=== PATIENT | male | born 1995 | race Caucasian/White ===

== ENCOUNTER 2020-01-30 02:30 | Emergency (ER) | payer OTHER, SELFPAY ==
[2020-01-30 02:42] VITALS: BP 111/83; PULSE 83; RESP 16; TEMP 36.4; O2SAT 97; BMI 32.2
--- NOTE | 2020-01-30 03:03 | ED.ALCOHOL ---
HPI - Alcohol General Chief Complaint: ETOH/Substance Use <Narciso Mooyd MD - Last Filed: 01/30/20 06:05> Stated Complaint: etoh <Narciso Moody MD - Last Filed: 01/30/20 06:05> Time Seen by Provider: 01/30/20 03:00 <Narciso Moody MD - Last Filed: 01/30/20 06:05> Source: patient and EMS <Narciso Moody MD - Last Filed: 01/30/20 06:05> Mode of arrival: EMS <Narciso Moody MD - Last Filed: 01/30/20 06:05> Limitations: other (Intoxicated) <Narciso Moody MD - Last Filed: 01/30/20 06:05> History of Present Illness HPI narrative: Patient came after drinking lots of Sambuca today and been vomiting a lot all day no significant abdominal pain no fever no diarrhea <Narciso Moody MD - Last Filed: 01/30/20 06:05> MD complaint: alcohol intoxication <Narciso Moody MD - Last Filed: 01/30/20 06:05> Related Data Allergies/Adverse Reactions: Allergies Allergy/AdvReac Type Severity Reaction Status Date / Time No Known Allergies Allergy Unverified 10/28/19 16:43 <Narciso Moody MD - Last Filed: 01/30/20 06:05> Review of Systems Review of Systems: Yes Unobtainable due to mental status (Intoxicated) <Narciso Moody MD - Last Filed: 01/30/20 06:05> [facility] Social History Social History: Social History Advance Directives: No Advance Directives Information Provided: No <Narciso Moody MD - Last Filed: 01/30/20 06:05> Physical Exam Vital Signs: Vital Signs: Last Vital Signs Temp 97.6 F 01/30/20 02:42 Pulse 79 01/30/20 05:58 Resp 16 01/30/20 05:58 BP 105/63 01/30/20 05:58 Pulse Ox 97 01/30/20 02:42 Body Mass Index 32.2 <Narciso Moody MD - Last Filed: 01/30/20 06:05> Vital Signs: Last Vital Signs Temp 97.6 F 01/30/20 02:42 Pulse 79 01/30/20 05:58 Resp 16 01/30/20 05:58 BP 105/63 01/30/20 05:58 Pulse Ox 97 01/30/20 02:42 Body Mass Index 32.2 <Nicole Sandra DO - Last Filed: 01/30/20 07:01> Appearance: Intoxicated, etoh ++ No acute distress. Eyes: Pupils equal, round and reactive to light. ENT: Pharynx normal. Neck: Normal inspection. Neck supple. CVS: Normal heart rate and rhythm. Pulses normal. Respiratory: No respiratory distress. Breath sounds normal. Abdomen: Soft and mild epigastric tenderness Bowel sounds are present, no mass palpable, no CVA tenderness Skin: Skin warm and dry. Normal skin color. Normal skin turgor. Extremities: No lower extremity edema. Neuro: Intoxicated No motor deficit. No sensory deficit. <Narciso Moody MD - Last Filed: 01/30/20 06:05> Course Course Course Narrative: I DID NOT SEE THIS PATIENT INITIALLY RECEIVED SIGN OUT AT 7AM - PENDING CLINICAL SOBRIETY THE PATIENT WILL BE OBSERVED, VS STABLE NOT TOXIC <Nicole Sandra DO - Last Filed: 01/30/20 07:01> MDM - Alcohol MDM Narrative Medical decision making narrative: Patient intoxicated with stable vital will watch him some more time till sober ETOH level was 251 at 03:00 <Narciso Moody MD - Last Filed: 01/30/20 06:05> Lab Data Result diagrams: : 01/30/20 03:09 01/30/20 03:09 <Narciso Moody MD - Last Filed: 01/30/20 06:05> Labs: Lab Results 01/30/20 01/30/20 01/30/20 Range/Units 03:09 03:09 03:09 WBC 6.2 (4.8-10.8) X10*3/uL RBC 4.91 (4.60-5.80) X10*6/uL Hgb 13.4 L (14.0-18.0) g/dl Hct 42.2 (42-52) % MCV 85.9 (80-98) fL MCH 27.3 (27.0-33.0) pg MCHC 31.8 (31.0-36.0) g/dl RDW 13.4 (11.0-16.0) % Plt Count 228 (160-400) X10*3/uL MPV 9.7 (9.4-12.4) fL Immature Gran % (Auto) 0.2 (0.0-0.4) % Neut % (Auto) 49.6 (45-73) % Lymph % (Auto) 32.8 (20-40) % Mcdonough % (Auto) 15.1 H (2-11) % Eos % (Auto) 1.8 (0-4) % Baso % (Auto) 0.5 (0-2) % Lymph # (Auto) 2.0 (1.2-4.9) X10*3/uL Mcdonough # (Auto) 0.9 (0.1-1.2) X10*3/uL Eos # (Auto) 0.1 (0.0-0.4) X10*3/uL Baso # (Auto) 0.0 (0.0-0.2) X10*3/uL Abs Immat Gran (auto) 0.01 (0.00-0.03) X10*3/uL Absolute Neuts (auto) 3.1 (2.0-8.3) X10*3/uL Absolute Nucleated RBC 0.000 (0.0-0.012) X10*3/uL Nucleated RBC % (auto) 0.0 (0.0-0.2) /100WBC Sodium 141 (135-145) mmol/L Potassium 3.7 (3.3-5.1) mmol/l Chloride 106 (96-108) mmol/L Carbon Dioxide 25 (22-29) mmol/L Anion Gap 14 (12-20) BUN 12 (9-16) mg/dL Creatinine 0.88 (0.5-1.4) mg/dL Estim Creat Clear Calc 160.8 Estimated GFR > 60 Random Glucose 100 (60-115) mg/dL Calcium 8.1 L (8.4-10.2) mg/dL Magnesium 2.5 (1.6-2.6) mg/dL Total Bilirubin 0.3 Cancelled (0.0-1.0) mg/dL Direct Bilirubin 0.2 Cancelled (0.0-0.5) mg/dL AST 16 Cancelled (5-37) U/L ALT 13 Cancelled (0-40) U/L Alkaline Phosphatase 83 Cancelled (39-117) U/L Total Protein 6.9 Cancelled (6.5-8.0) g/dL Albumin 4.1 Cancelled (3.5-5.0) g/dL Lipase 45 Cancelled (8-78) U/L Ethyl Alcohol mg/dL 01/30/20 Range/Units 03:09 WBC (4.8-10.8) X10*3/uL RBC (4.60-5.80) X10*6/uL Hgb (14.0-18.0) g/dl Hct (42-52) % MCV (80-98) fL MCH (27.0-33.0) pg MCHC (31.0-36.0) g/dl RDW (11.0-16.0) % Plt Count (160-400) X10*3/uL MPV (9.4-12.4) fL Immature Gran % (Auto) (0.0-0.4) % Neut % (Auto) (45-73) % Lymph % (Auto) (20-40) % Mcdonough % (Auto) (2-11) % Eos % (Auto) (0-4) % Baso % (Auto) (0-2) % Lymph # (Auto) (1.2-4.9) X10*3/uL Mcdonough # (Auto) (0.1-1.2) X10*3/uL Eos # (Auto) (0.0-0.4) X10*3/uL Baso # (Auto) (0.0-0.2) X10*3/uL Abs Immat Gran (auto) (0.00-0.03) X10*3/uL Absolute Neuts (auto) (2.0-8.3) X10*3/uL Absolute Nucleated RBC (0.0-0.012) X10*3/uL Nucleated RBC % (auto) (0.0-0.2) /100WBC Sodium (135-145) mmol/L Potassium (3.3-5.1) mmol/l Chloride (96-108) mmol/L Carbon Dioxide (22-29) mmol/L Anion Gap (12-20) BUN (9-16) mg/dL Creatinine (0.5-1.4) mg/dL Estim Creat Clear Calc Estimated GFR Random Glucose (60-115) mg/dL Calcium (8.4-10.2) mg/dL Magnesium (1.6-2.6) mg/dL Total Bilirubin (0.0-1.0) mg/dL Direct Bilirubin (0.0-0.5) mg/dL AST (5-37) U/L ALT (0-40) U/L Alkaline Phosphatase (39-117) U/L Total Protein (6.5-8.0) g/dL Albumin (3.5-5.0) g/dL Lipase (8-78) U/L Ethyl Alcohol 251 mg/dL <Narciso Moody MD - Last Filed: 01/30/20 06:05> Lab Results 01/30/20 01/30/20 01/30/20 Range/Units 03:09 03:09 03:09 WBC 6.2 (4.8-10.8) X10*3/uL RBC 4.91 (4.60-5.80) X10*6/uL Hgb 13.4 L (14.0-18.0) g/dl Hct 42.2 (42-52) % MCV 85.9 (80-98) fL MCH 27.3 (27.0-33.0) pg MCHC 31.8 (31.0-36.0) g/dl RDW 13.4 (11.0-16.0) % Plt Count 228 (160-400) X10*3/uL MPV 9.7 (9.4-12.4) fL Immature Gran % (Auto) 0.2 (0.0-0.4) % Neut % (Auto) 49.6 (45-73) % Lymph % (Auto) 32.8 (20-40) % Mcdonough % (Auto) 15.1 H (2-11) % Eos % (Auto) 1.8 (0-4) % Baso % (Auto) 0.5 (0-2) % Lymph # (Auto) 2.0 (1.2-4.9) X10*3/uL Mcdonough # (Auto) 0.9 (0.1-1.2) X10*3/uL Eos # (Auto) 0.1 (0.0-0.4) X10*3/uL Baso # (Auto) 0.0 (0.0-0.2) X10*3/uL Abs Immat Gran (auto) 0.01 (0.00-0.03) X10*3/uL Absolute Neuts (auto) 3.1 (2.0-8.3) X10*3/uL Absolute Nucleated RBC 0.000 (0.0-0.012) X10*3/uL Nucleated RBC % (auto) 0.0 (0.0-0.2) /100WBC Sodium 141 (135-145) mmol/L Potassium 3.7 (3.3-5.1) mmol/l Chloride 106 (96-108) mmol/L Carbon Dioxide 25 (22-29) mmol/L Anion Gap 14 (12-20) BUN 12 (9-16) mg/dL Creatinine 0.88 (0.5-1.4) mg/dL Estim Creat Clear Calc 160.8 Estimated GFR > 60 Random Glucose 100 (60-115) mg/dL Calcium 8.1 L (8.4-10.2) mg/dL Magnesium 2.5 (1.6-2.6) mg/dL Total Bilirubin 0.3 Cancelled (0.0-1.0) mg/dL Direct Bilirubin 0.2 Cancelled (0.0-0.5) mg/dL AST 16 Cancelled (5-37) U/L ALT 13 Cancelled (0-40) U/L Alkaline Phosphatase 83 Cancelled (39-117) U/L Total Protein 6.9 Cancelled (6.5-8.0) g/dL Albumin 4.1 Cancelled (3.5-5.0) g/dL Lipase 45 Cancelled (8-78) U/L Ethyl Alcohol mg/dL 01/30/20 Range/Units 03:09 WBC (4.8-10.8) X10*3/uL RBC (4.60-5.80) X10*6/uL Hgb (14.0-18.0) g/dl Hct (42-52) % MCV (80-98) fL MCH (27.0-33.0) pg MCHC (31.0-36.0) g/dl RDW (11.0-16.0) % Plt Count (160-400) X10*3/uL MPV (9.4-12.4) fL Immature Gran % (Auto) (0.0-0.4) % Neut % (Auto) (45-73) % Lymph % (Auto) (20-40) % Mcdonough % (Auto) (2-11) % Eos % (Auto) (0-4) % Baso % (Auto) (0-2) % Lymph # (Auto) (1.2-4.9) X10*3/uL Mcdonough # (Auto) (0.1-1.2) X10*3/uL Eos # (Auto) (0.0-0.4) X10*3/uL Baso # (Auto) (0.0-0.2) X10*3/uL Abs Immat Gran (auto) (0.00-0.03) X10*3/uL Absolute Neuts (auto) (2.0-8.3) X10*3/uL Absolute Nucleated RBC (0.0-0.012) X10*3/uL Nucleated RBC % (auto) (0.0-0.2) /100WBC Sodium (135-145) mmol/L Potassium (3.3-5.1) mmol/l Chloride (96-108) mmol/L Carbon Dioxide (22-29) mmol/L Anion Gap (12-20) BUN (9-16) mg/dL Creatinine (0.5-1.4) mg/dL Estim Creat Clear Calc Estimated GFR Random Glucose (60-115) mg/dL Calcium (8.4-10.2) mg/dL Magnesium (1.6-2.6) mg/dL Total Bilirubin (0.0-1.0) mg/dL Direct Bilirubin (0.0-0.5) mg/dL AST (5-37) U/L ALT (0-40) U/L Alkaline Phosphatase (39-117) U/L Total Protein (6.5-8.0) g/dL Albumin (3.5-5.0) g/dL Lipase (8-78) U/L Ethyl Alcohol 251 mg/dL <Nicole Sandra DO - Last Filed: 01/30/20 07:01> Discharge Plan Discharge Clinical Impression: Alcoholic intoxication Qualifiers: Complication of substance-induced condition: uncomplicated Qualified Code(s): F10.920 - Alcohol use, unspecified with intoxication, uncomplicated <Narciso Moody MD - Last Filed: 01/30/20 06:05> Patient Disposition: Home, Self-Care <Narciso Moody MD - Last Filed: 01/30/20 06:05> Instructions: Alcohol Intoxication (ED) <Narciso Moody MD - Last Filed: 01/30/20 06:05> Additional Instructions: Stop drinking alcohol above legal limit. <Narciso Moody MD - Last Filed: 01/30/20 06:05>
--- NOTE | 2020-01-30 03:03 | PC.NURSE ---
at bedside for primary eval.
--- NOTE | 2020-01-30 03:05 | PC.NURSE ---
Pt sitting upright in hospital bed with vomit noted to face, colindres and clothes. Pt is awake, speaking full sentences but speech slurred, +ETOH halitosis. Pt self reports to drinking a lot of Sambuca. Pt nauseated, vomiting several times [employer], pt continues dry heaving while in hospital bed. IV established, labs obtained, IVF hung, pt medicated per APR. VSS. Pt snoring at this time, continue to monitor.
[2020-01-30] MEDS: Famotidine/PF 20 MG/2 ML VIAL IVPUSH (03:08)
[2020-01-30] MEDS: 0.9 % Sodium Chloride 1,000 ML 999 ML IVCONT (03:08)
[2020-01-30] MEDS: ondansetron HCL 4 MG/2 ML VIAL IVPUSH (03:08)
[2020-01-30 03:19] LABS: Basophils Percent Auto 0.5 % (0-2); Eosinophils Absolute Auto 0.1 X10*3/uL (0.0-0.4); Eosinophils Percent Auto 1.8 % (0-4); Hematocrit 42.2 % (42-52); Hemoglobin 13.4 g/dl (14.0-18.0); Imm Gran Abs Auto 0.01 X10*3/uL (0.00-0.03); Imm Gran Pct Auto 0.2 % (0.0-0.4); Lymphocytes Percent Auto 32.8 % (20-40); MANUAL DIFF FLAG NO; Mean Corpuscular HGB Conc 31.8 g/dl (31.0-36.0); Mean Corpuscular Hemoglobin 27.3 pg (27.0-33.0); Mean Corpuscular Volume 85.9 fL (80-98); Mean Platelet Volume 9.7 fL (9.4-12.4); Monocytes Absolute Auto 0.9 X10*3/uL (0.1-1.2); Monocytes Percent Auto 15.1 % (2-11); Neutrophils Absolute Auto 3.1 X10*3/uL (2.0-8.3); Neutrophils Percent Auto 49.6 % (45-73); Platelet Count 228 X10*3/uL (160-400); Red Blood Count 4.91 X10*6/uL (4.60-5.80); Red Cell Distribution Width 13.4 % (11.0-16.0); White Blood Count 6.2 X10*3/uL (4.8-10.8)
[2020-01-30 03:36] VITALS: BP 121/66; PULSE 74; RESP 20
[2020-01-30 03:58] LABS: Ethanol 251 mg/dL
[2020-01-30 04:00] LABS: Alanine Aminotransferase 13 U/L (0-40); Albumin Level 4.1 g/dL (3.5-5.0); Alkaline Phosphatase 83 U/L (39-117); Anion Gap 14 (12-20); Aspartate Amino Transferase 16 U/L (5-37); Bilirubin Direct 0.2 mg/dL (0.0-0.5); Bilirubin Total 0.3 mg/dL (0.0-1.0); Blood Urea Nitrogen 12 mg/dL (9-16); Calcium 8.1 mg/dL (8.4-10.2); Carbon Dioxide 25 mmol/L (22-29); Chloride 106 mmol/L (96-108); Creatinine Clr Calc Pharmacy 160.8; Estimated Glomerular Filt Rate > 60; Glucose Random 100 mg/dL (60-115); Lipase 45 U/L (8-78); Magnesium 2.5 mg/dL (1.6-2.6); Potassium 3.7 mmol/l (3.3-5.1); Sodium 141 mmol/L (135-145); Total Protein 6.9 g/dL (6.5-8.0)
[2020-01-30 04:45] VITALS: BP 105/69; PULSE 69; RESP 16
--- NOTE | 2020-01-30 05:28 | PC.NURSE ---
Pt remains asleep in bed at this time, visible chest rise noted. VSS. Continue to monitor.
[2020-01-30 05:58] VITALS: BP 105/63; PULSE 79; RESP 16
--- NOTE | 2020-01-30 06:10 | PC.NURSE ---
Pt remains in bed asleep at this time, wakes easily to verbal stimuli. Speech slurred and incoherent. Pt repositioned in bed, padding applied to left side rail. No episodes of vomiting noted since given Zofran. VSS. Plan to DC with sober ride when pt is CAOx4. Continue to monitor.
[2020-01-30 07:21] VITALS: BP 102/66; PULSE 54; RESP 18; O2SAT 98
[2020-01-30 09:03] VITALS: BP 100/64; PULSE 85; RESP 20; O2SAT 100
--- NOTE | 2020-01-30 11:00 | PC.NURSE ---
Pt awake, alert and oriented. He is calm and cooperative at this time. He was given extra shirt for dc as his was soiled. He is calling contacts for a ride home.
== END 2020-01-30 11:02 | disposition home or self-care (01) ==
PROVIDERS: Emergency Provider Internal Medicine
DX: F10.920 Alcohol use, unspecified with intoxication, uncomplicated (principal); Y90.8 Blood alcohol level of 240 mg/100 ml or more
CPT/HCPCS: 36415; 80048; 80076; 80320; 83690; 83735; 85025; 96361; 96374; 96375; 99284; J2405

== ENCOUNTER 2022-02-23 18:37 | Inpatient (IN) | payer OTHER, SELFPAY ==
--- NOTE | ~2022-02-23 | CT_ITS ---
EXAMINATION: CT ABDOMEN AND PELVIS WITH CONTRAST CLINICAL INFORMATION: Left upper quadrant pain COMPARISON: None TECHNIQUE: Multidetector volumetric images were obtained from the superior aspect of the liver through the pubic symphysis following administration 85 mL of Omnipaque 350 intravenous contrast. Sagittal and coronal reformatted images were obtained on the technologist's workstation. Oral contrast: No This CT examination was performed using dose optimization techniques as appropriate, variously including the following: *Automated exposure control *Adjustment of mA and/or kV according to patient size (this includes techniques or standardized protocols for targeted exams where dose is matched to indication/reason for exam; i.e. extremities or head) *Use of iterative reconstruction technique DLP: 746 mGy-cm FINDINGS: LUNG BASES: Mild basilar atelectasis LIVER, GALLBLADDER, AND BILIARY TREE: The liver is normal in size, shape, and attenuation. No focal hepatic lesion or biliary ductal dilatation is present. The gallbladder is unremarkable with no evidence of radiopaque gallstones, gallbladder wall thickening, or obvious pericholecystic inflammatory changes. PANCREAS: Pancreas is surrounded by fluid is tracking down the left paracolic gutter region. SPLEEN: Unremarkable. ADRENAL GLANDS: Unremarkable. KIDNEYS AND URETERS: The kidneys are normal in size, shape, and attenuation. No hydronephrosis, hydroureter, or calculi seen. No perinephric stranding. BLADDER: Unremarkable. GASTROINTESTINAL TRACT: Nonobstructing bowel pattern. Moderate hiatal hernia ABDOMINAL WALL: No significant hernia is appreciated. LYMPH NODES: Normal. VASCULAR: Unremarkable. PELVIC VISCERA: Unremarkable. OSSEOUS STRUCTURES: Unremarkable. CT/CT abdomen pelvis w IV con IMPRESSION: Fluid density and soft tissue stranding around the pancreas consistent with sequela of pancreatitis. Other findings are as described above
--- NOTE | ~2022-02-23 | XR_ITS ---
EXAMINATION: XR ABDOMEN KUB CLINICAL INDICATION: Constipation COMPARISON: KUB 02/23/[address] 02/23/2022 TECHNIQUE: AP view of the abdomen. FINDINGS: Compared to the study of 2 days ago, there has been no interval change. Once again seen is a normal bowel gas pattern with no evidence of ileus or obstruction. No unusual soft tissue calcifications are noted. Some air is present in the colon without significant stool burden. The bones are unremarkable. XR/XR KUB IMPRESSION: No evidence of bowel obstruction. No significant stool burden.
--- NOTE | ~2022-02-23 | XR_ITS ---
EXAMINATION: XR ABDOMEN KUB CLINICAL INDICATION: Constipation COMPARISON: None TECHNIQUE: AP view of the abdomen. FINDINGS: Nonobstructive abdominal bowel gas pattern. Minimal stool present. No abnormal abdominal calcifications. No acute osseous abnormality. XR/XR KUB IMPRESSION: Nonobstructive abdominal bowel gas pattern. Minimal stool present.
[2022-02-23 18:39] VITALS: BP 150/96; PULSE 124; RESP 18; TEMP 36.2; O2SAT 98; BMI 30.9
--- NOTE | 2022-02-23 18:39 | ECG_ITS ---
Test Reason : CP Blood Pressure : / mmHG Vent. Rate : 109 BPM Atrial Rate : 109 BPM P-R Int : 130 ms QRS Dur : 086 ms QT Int : 306 ms P-R-T Axes : 057 041 032 degrees QTc Int : 412 ms Sinus tachycardia Possible Left atrial enlargement ST & T wave abnormality, consider inferior ischemia ST & T wave abnormality, consider anterolateral ischemia Abnormal ECG No previous ECGs available Referred By: Kassy Campuzano Electronically Signed By:Haim Merrill
--- NOTE | 2022-02-23 18:40 | ED_ITS ---
HPI - Abdominal Pain General Chief Complaint: Nausea/Vomiting/Diarrhea <GIRISH Reyes Last Filed: 02/23/22 18:43> Stated Complaint: pressure in chest and stomach/vomitting <GIRISH Reyes Last Filed: 02/23/22 18:43> Time Seen by Provider: 02/23/22 19:22 <GIRISH Reyes Last Filed: 02/23/22 18:43> Source: patient <GIRISH Umanzor Last Filed: 02/23/22 21:54> Mode of arrival: ambulatory <GIRISH Umanzor Last Filed: 02/23/22 21:54> Limitations: no limitations <GIRISH Umanzor Last Filed: 02/23/22 21:54> History of Present Illness HPI narrative: This is a 26-year-old male past medical history significant for asthma presenting to the emergency department with nausea, vomiting and no bowel movements since this morning, he tells me he feels constipated also experiencing epigastric severe abdominal pain described as sharp, intermittent. Patient tells me that the abdominal pain does not radiate. Patient tells me he has not been able to keep anything down today, he tells me he feels awful. Patient reports he is a frequent drinker drinks 3-4 drinks daily what ever is available to him. No history of alcohol withdrawal. No history of pancreatitis. Denies chest pain, shortness of breath, fevers, chills, headache, vision changes, dizziness, weakness. <GIRISH Umanzor Last Filed: 02/23/22 21:54> Related Data Allergies/Adverse Reactions: Allergies Allergy/AdvReac Type Severity Reaction Status Date / Time No Known Allergies Allergy Unverified 10/28/19 16:43 <GIRISH Reyes Last Filed: 02/23/22 18:43> Review of Systems Review of Systems Constitutional : No Weight loss, No Fever, No Chills, No Fatigue, No Malaise ENT/Mouth : No sore throat, No Rhinorrhea Eyes: No Eye Pain, No Swelling, No Redness Cardiovascular : No Chest Pain, No SOB, No Dyspnea on Exertion, No Orthopnea, No Edema, No Palpitations Respiratory : No Cough, No Sputum, No Wheezing Gastrointestinal : + Nausea, + Vomiting, No Diarrhea, No Constipation, + abdominal Pain, No Hematochezia, No Melena Genitourinary : No Dysuria, No Urinary Frequency, No Hematuria, Musculoskeletal : No joint pain, No Myalgias, No Joint Swelling Skin : No Skin Lesions, No rash Neuro : No Weakness, No Numbness, No Dizziness, No Headache Psych : No Anxiety/Panic, No Depression All other systems reviewed and are negative <GIRISH Umanzor - Last Filed: 02/23/22 21:54> Yes all other systems are reviewed and are negative <GIRISH Umanzor - Last Filed: 02/23/22 21:54> PMF Past Medical History Attestation statement: The following information was validated with the patient. <GIRISH Umanzor - Last Filed: 02/23/22 21:54> Source: old records reviewed and nursing notes reviewed <GIRISH Umanzor - Last Filed: 02/23/22 21:54> Social History Social History: Social History Alcohol intake: current Alcohol intake frequency: 0-2 drinks per day Alcohol type: hard liquor Smoked in Last 30 Days: No Use of substances other than those prescribed or required for medical reasons: Yes Substance Use Type: Marijuana Substance Use Frequency: Occasionally Any prior treatment program specific to substance use: Yes Advance Directives: No Advance Directives Information Provided: No <GIRISH Reyes - Last Filed: 02/23/22 18:43> Physical Exam ED Vital Signs: Vital Signs - 24 hr 02/23/22 18:39 02/23/22 20:00 02/23/22 20:36 Temperature 97.1 F 98.1 F Pulse Rate 124 H 119 H Respiratory Rate 18 16 20 Blood Pressure 150/96 H 142/105 H Pulse Oximetry 98 98 Oxygen Delivery Method Room Air Room Air 02/23/22 21:51 Temperature 98.6 F Pulse Rate 87 Respiratory Rate 16 Blood Pressure 139/89 Pulse Oximetry 100 Oxygen Delivery Method Room Air BMI result Body Mass Index 30.9 <GIRISH Reyes - Last Filed: 02/23/22 18:43> Vital Signs - 24 hr 02/23/22 18:39 02/23/22 20:00 02/23/22 20:36 Temperature 97.1 F 98.1 F Pulse Rate 124 H 119 H Respiratory Rate 18 16 20 Blood Pressure 150/96 H 142/105 H Pulse Oximetry 98 98 Oxygen Delivery Method Room Air Room Air 02/23/22 21:51 Temperature 98.6 F Pulse Rate 87 Respiratory Rate 16 Blood Pressure 139/89 Pulse Oximetry 100 Oxygen Delivery Method Room Air BMI result Body Mass Index 30.9 Vital signs significant for tachycardia, hypertension likely secondary to pain or discomfort. <GIRISH Umanzor - Last Filed: 02/23/22 21:54> Appearance: Alert.? Oriented X3.? No acute distress.? Patient appears uncomfortable. Head: Normocephalic, atraumatic, no step-offs or deformities Eyes: Pupils equal, round and reactive to light.? ENT: Pharynx normal.? Neck: Normal inspection.? Neck supple.? CVS: Normal heart rate and rhythm.? Pulses normal.? Respiratory: No respiratory distress.? Breath sounds normal.? Abdomen: Soft and tenderness epigastric and left upper quadrant. Normoactive bowel sounds. Skin: Skin warm and dry.? Normal skin color.? Normal skin turgor.? Extremities: No lower extremity edema.? No calf ttp. 5/5 strength to bilateral upper and lower extremities Back: no CVA tenderness bilaterally Neuro: Oriented X 3.? No motor deficit.? No sensory deficit. CN 2-12 intact <GIRISH Umanzor - Last Filed: 02/23/22 21:54> Course Course Course Narrative: RME-- 26yo M w/no sig PMHx c/o nausea, vomiting, constipation, abdominal pain and chest pain since this AM. Last BM this AM. Took laxative w/o relief. Tachycardic and anxious on exam. abdomen soft with epigastric ttp EKG, labs, UA and KUB ordered <GIRISH Reyes - Last Filed: 02/23/22 18:43> Reevaluation(s) Reevaluation #1: Patient with elevated white blood cell count 12.2 likely reactive from nausea and vomiting versus inflammation. Chemistry with no acute electrolyte abnormalities requiring intervention. Troponin negative, EKG nonischemic unlikely ACS. Lipase elevated 465 consistent with acute pancreatitis, will add triglyceride level. Patient's UA without infection. Pending CT of the abdomen pelvis, patient receiving hydration, pain control plan is for hospital admission after CT results. <GIRISH Umanzor - Last Filed: 02/23/22 21:54> Time: 20:26 <GIRISH Umanzor - Last Filed: 02/23/22 21:54> Reevaluation #2: Patient's lactic acid 2.3 likely secondary to dehydration/poor p.o. intake however patient does have a leukocytosis therefore will cover with empiric antibiotics. <GIRISH Umanzor - Last Filed: 02/23/22 21:54> Time: 21:07 <GIRISH Umanzor - Last Filed: 02/23/22 21:54> Reevaluation #3: Patient will be admitted to the hospital as he is not tolerating p.o. and has new diagnosis of pancreatitis. Hospitalist accepts admission <GIRISH Umanzor - Last Filed: 02/23/22 21:54> Time: 21:54 <GIRISH Umanzor - Last Filed: 02/23/22 21:54> Medical Decision Making Medical Decision Making MDM Narrative: 2014 26-year-old male presents with epigastric/left upper quadrant pain since this morning associated with nausea, vomiting and difficulty having bowel movements. Current daily drinker. Physical exam with epigastric and left upper quadrant pain on palpation. Patient tachycardic and hypertensive likely secondary to pain and discomfort. History and physical exam concerning for possible gastritis versus pancreatitis. Unlikely acute abdomen, diverticulitis, pyelonephritis, appendicitis, cholecy stitis, kidney stones or UTI. Plan at this time labs, imaging, fluids, Zofran for nausea, morphine for pain control. <GIRISH Umanzor Last Filed: 02/23/22 21:54> Differential Diagnosis Differential Diagnoses: The differential diagnosis associated with the presentation includes <GIRISH Umanzor Last Filed: 02/23/22 21:54> History and physical exam concerning for possible gastritis versus pancreatitis. Unlikely acute abdomen, diverticulitis, pyelonephritis, appendicitis, cholecystitis, kidney stones or UTI. <GIRISH Umanzor - Last Filed: 02/23/22 21:54> Admission/Observation Consideration of admission/observation: Escalation of care including admission/observation considered <GIRISH Umanzor - Last Filed: 02/23/22 21:54> I suspect patient will be admitted to the hospital as he is unable to tolerate p.o. in likely has pancreatitis <GIRISH Umanzor - Last Filed: 02/23/22 21:54> Consult Healthcare Provider Management of the patient was discussed with: Hospitalist <GIRISH Umanzor - Last Filed: 02/23/22 21:54> Lab Data MDM Lab Attestation statement: I reviewed the patient's lab results. <GIRISH Umanzor - Last Filed: 02/23/22 21:54> Result Diagrams: 02/23/22 18:52 02/23/22 18:52 <GIRISH Reyes - Last Filed: 02/23/22 18:43> Labs: Lab Results 02/23/22 02/23/22 02/23/22 Range/Units 18:52 18:52 18:52 WBC 12.2 H (4.8-10.8) X10*3/uL RBC 5.47 (4.60-5.80) X10*6/uL Hgb 15.5 (14.0-18.0) g/dl Hct 45.8 (42.0-52.0) % MCV 83.7 (80.0-98.0) fL MCH 28.3 (27.0-33.0) pg MCHC 33.8 (31.0-36.0) g/dl RDW 13.5 (11.0-16.0) % Plt Count 238 (160-400) X10*3/uL MPV 8.3 L (9.4-12.4) fL Immature Gran % (Auto) 0.3 (0.0-0.4) % Neut % (Auto) 89.8 H (45-73) % Lymph % (Auto) 2.3 L (20-40) % Bennett % (Auto) 7.0 (2-11) % Eos % (Auto) 0.4 (0-4) % Baso % (Auto) 0.2 (0-2) % Lymph # (Auto) 0.3 L (1.2-4.9) X10*3/uL Bennett # (Auto) 0.9 (0.1-1.2) X10*3/uL Eos # (Auto) 0.1 (0.0-0.4) X10*3/uL Baso # (Auto) 0.0 (0.0-0.2) X10*3/uL Abs Immat Gran (auto) 0.04 H (0.00-0.03) X10*3/uL Absolute Neuts (auto) 11.0 H (2.0-8.3) x10*3/uL Absolute Nucleated RBC 0.000 (0.0-0.012) X10*3/uL Nucleated RBC % (auto) 0.0 (0.0-0.2) /100WBC Sodium 136 (135-145) mmol/L Potassium 3.7 (3.3-5.1) mmol/L Chloride 102 (96-108) mmol/L Carbon Dioxide 18 L (22-29) mmol/L Anion Gap 20 (12-20) BUN 15 (9-16) mg/dL Creatinine 0.83 (0.5-1.4) mg/dL Estim Creat Clear Calc 159.7 Estimated GFR > 60 Random Glucose 128 H (60-115) mg/dL Lactic Acid (0.5-2.0) mmol/L Calcium 8.8 D (8.4-10.2) mg/dL Magnesium 1.7 (1.6-2.6) mg/dL Total Bilirubin 1.1 H (0.0-1.0) mg/dL Direct Bilirubin 0.4 (0.0-0.5) mg/dL AST 40 H (5-37) U/L ALT 33 (0-40) U/L Alkaline Phosphatase 87 (39-117) U/L Troponin I High Sens < 3.5 (<3.5-35.0) ng/L Total Protein 7.5 (6.5-8.0) g/dL Albumin 4.1 (3.5-5.0) g/dL Triglycerides 437 mg/dL Lipase 465 H (8-78) U/L Urine Color Urine Appearance Urine pH (5.0-9.0) Ur Specific [place] (1.005-1.025) Urine Protein (Neg-Trace) mg/dL Urine Glucose (UA) (Negative) mg/dL Urine Ketones (Negative) mg/dL Urine Blood (Negative) Urine Nitrite (Negative) Ur Leukocyte Esterase (Negative) Urine RBC (0-2) /HPF Urine WBC (0-5) /HPF Ur Squamous Epith Cells (0-2) /HPF Urine Bacteria (None Seen) Hyaline Casts (0-2) /LPF Urine Opiates Screen (Not Detect) Urine Fentanyl Screen (Not Detect) Ur Barbiturates Screen (Not Detect) Ur Phencyclidine Scrn (Not Detect) Ur Amphetamines Screen (Not Detect) U Benzodiazepines Scrn (Not Detect) Urine Cocaine Screen (Not Detect) U Marijuana (THC) Screen (Not Detect) Ethyl Alcohol < 10 mg/dL 02/23/22 02/23/22 02/23/22 Range/Units 18:55 19:23 20:25 WBC (4.8-10.8) X10*3/uL RBC (4.60-5.80) X10*6/uL Hgb (14.0-18.0) g/dl Hct (42.0-52.0) % MCV (80.0-98.0) fL MCH (27.0-33.0) pg MCHC (31.0-36.0) g/dl RDW (11.0-16.0) % Plt Count (160-400) X10*3/uL MPV (9.4-12.4) fL Immature Gran % (Auto) (0.0-0.4) % Neut % (Auto) (45-73) % Lymph % (Auto) (20-40) % Bennett % (Auto) (2-11) % Eos % (Auto) (0-4) % Baso % (Auto) (0-2) % Lymph # (Auto) (1.2-4.9) X10*3/uL Bennett # (Auto) (0.1-1.2) X10*3/uL Eos # (Auto) (0.0-0.4) X10*3/uL Baso # (Auto) (0.0-0.2) X10*3/uL Abs Immat Gran (auto) (0.00-0.03) X10*3/uL Absolute Neuts (auto) (2.0-8.3) x10*3/uL Absolute Nucleated RBC (0.0-0.012) X10*3/uL Nucleated RBC % (auto) (0.0-0.2) /100WBC Sodium (135-145) mmol/L Potassium (3.3-5.1) mmol/L Chloride (96-108) mmol/L Carbon Dioxide (22-29) mmol/L Anion Gap (12-20) BUN (9-16) mg/dL Creatinine (0.5-1.4) mg/dL Estim Creat Clear Calc Estimated GFR Random Glucose (60-115) mg/dL Lactic Acid 2.3 H* (0.5-2.0) mmol/L Calcium (8.4-10.2) mg/dL Magnesium (1.6-2.6) mg/dL Total Bilirubin (0.0-1.0) mg/dL Direct Bilirubin (0.0-0.5) mg/dL AST (5-37) U/L ALT (0-40) U/L Alkaline Phosphatase (39-117) U/L Troponin I High Sens (<3.5-35.0) ng/L Total Protein (6.5-8.0) g/dL Albumin (3.5-5.0) g/dL Triglycerides mg/dL Lipase (8-78) U/L Urine Color Dark Yellow Urine Appearance Cloudy Urine pH 5.5 (5.0-9.0) Ur Specific [place] >= 1.030 H (1.005-1.025) Urine Protein 100 (2+) H (Neg-Trace) mg/dL Urine Glucose (UA) Negative (Negative) mg/dL Urine Ketones Negative (Negative) mg/dL Urine Blood Negative (Negative) Urine Nitrite Negative (Negative) Ur Leukocyte Esterase Negative (Negative) Urine RBC 0-2 (0-2) /HPF Urine WBC 0-5 (0-5) /HPF Ur Squamous Epith Cells 0-2 (0-2) /HPF Urine Bacteria None Seen (None Seen) Hyaline Casts 0-2 (0-2) /LPF Urine Opiates Screen Not Detected (Not Detect) Urine Fentanyl Screen Not Detected (Not Detect) Ur Barbiturates Screen Not Detected (Not Detect) Ur Phencyclidine Scrn Not Detected (Not Detect) Ur Amphetamines Screen Not Detected (Not Detect) U Benzodiazepines Scrn Not Detected (Not Detect) Urine Cocaine Screen Not Detected (Not Detect) U Marijuana (THC) Screen POSITIVE H (Not Detect) Ethyl Alcohol mg/dL <GIRISH Reyes - Last Filed: 02/23/22 18:43> Lab Results 02/23/22 02/23/22 02/23/22 Range/Units 18:52 18:52 18:52 WBC 12.2 H (4.8-10.8) X10*3/uL RBC 5.47 (4.60-5.80) X10*6/uL Hgb 15.5 (14.0-18.0) g/dl Hct 45.8 (42.0-52.0) % MCV 83.7 (80.0-98.0) fL MCH 28.3 (27.0-33.0) pg MCHC 33.8 (31.0-36.0) g/dl RDW 13.5 (11.0-16.0) % Plt Count 238 (160-400) X10*3/uL MPV 8.3 L (9.4-12.4) fL Immature Gran % (Auto) 0.3 (0.0-0.4) % Neut % (Auto) 89.8 H (45-73) % Lymph % (Auto) 2.3 L (20-40) % Bennett % (Auto) 7.0 (2-11) % Eos % (Auto) 0.4 (0-4) % Baso % (Auto) 0.2 (0-2) % Lymph # (Auto) 0.3 L (1.2-4.9) X10*3/uL Bennett # (Auto) 0.9 (0.1-1.2) X10*3/uL Eos # (Auto) 0.1 (0.0-0.4) X10*3/uL Baso # (Auto) 0.0 (0.0-0.2) X10*3/uL Abs Immat Gran (auto) 0.04 H (0.00-0.03) X10*3/uL Absolute Neuts (auto) 11.0 H (2.0-8.3) x10*3/uL Absolute Nucleated RBC 0.000 (0.0-0.012) X10*3/uL Nucleated RBC % (auto) 0.0 (0.0-0.2) /100WBC Sodium 136 (135-145) mmol/L Potassium 3.7 (3.3-5.1) mmol/L Chloride 102 (96-108) mmol/L Carbon Dioxide 18 L (22-29) mmol/L Anion Gap 20 (12-20) BUN 15 (9-16) mg/dL Creatinine 0.83 (0.5-1.4) mg/dL Estim Creat Clear Calc 159.7 Estimated GFR > 60 Random Glucose 128 H (60-115) mg/dL Lactic Acid (0.5-2.0) mmol/L Calcium 8.8 D (8.4-10.2) mg/dL Magnesium 1.7 (1.6-2.6) mg/dL Total Bilirubin 1.1 H (0.0-1.0) mg/dL Direct Bilirubin 0.4 (0.0-0.5) mg/dL AST 40 H (5-37) U/L ALT 33 (0-40) U/L Alkaline Phosphatase 87 (39-117) U/L Troponin I High Sens < 3.5 (<3.5-35.0) ng/L Total Protein 7.5 (6.5-8.0) g/dL Albumin 4.1 (3.5-5.0) g/dL Triglycerides 437 mg/dL Lipase 465 H (8-78) U/L Urine Color Urine Appearance Urine pH (5.0-9.0) Ur Specific [place] (1.005-1.025) Urine Protein (Neg-Trace) mg/dL Urine Glucose (UA) (Negative) mg/dL Urine Ketones (Negative) mg/dL Urine Blood (Negative) Urine Nitrite (Negative) Ur Leukocyte Esterase (Negative) Urine RBC (0-2) /HPF Urine WBC (0-5) /HPF Ur Squamous Epith Cells (0-2) /HPF Urine Bacteria (None Seen) Hyaline Casts (0-2) /LPF Urine Opiates Screen (Not Detect) Urine Fentanyl Screen (Not Detect) Ur Barbiturates Screen (Not Detect) Ur Phencyclidine Scrn (Not Detect) Ur Amphetamines Screen (Not Detect) U Benzodiazepines Scrn (Not Detect) Urine Cocaine Screen (Not Detect) U Marijuana (THC) Screen (Not Detect) Ethyl Alcohol < 10 mg/dL 02/23/22 02/23/22 02/23/22 Range/Units 18:55 19:23 20:25 WBC (4.8-10.8) X10*3/uL RBC (4.60-5.80) X10*6/uL Hgb (14.0-18.0) g/dl Hct (42.0-52.0) % MCV (80.0-98.0) fL MCH (27.0-33.0) pg MCHC (31.0-36.0) g/dl RDW (11.0-16.0) % Plt Count (160-400) X10*3/uL MPV (9.4-12.4) fL Immature Gran % (Auto) (0.0-0.4) % Neut % (Auto) (45-73) % Lymph % (Auto) (20-40) % Bennett % (Auto) (2-11) % Eos % (Auto) (0-4) % Baso % (Auto) (0-2) % Lymph # (Auto) (1.2-4.9) X10*3/uL [place] # (Auto) (0.1-1.2) X10*3/uL Eos # (Auto) (0.0-0.4) X10*3/uL Baso # (Auto) (0.0-0.2) X10*3/uL Abs Immat Gran (auto) (0.00-0.03) X10*3/uL Absolute Neuts (auto) (2.0-8.3) x10*3/uL Absolute Nucleated RBC (0.0-0.012) X10*3/uL Nucleated RBC % (auto) (0.0-0.2) /100WBC Sodium (135-145) mmol/L Potassium (3.3-5.1) mmol/L Chloride (96-108) mmol/L Carbon Dioxide (22-29) mmol/L Anion Gap (12-20) BUN (9-16) mg/dL Creatinine (0.5-1.4) mg/dL Estim Creat Clear Calc Estimated GFR Random Glucose (60-115) mg/dL Lactic Acid 2.3 H* (0.5-2.0) mmol/L Calcium (8.4-10.2) mg/dL Magnesium (1.6-2.6) mg/dL Total Bilirubin (0.0-1.0) mg/dL Direct Bilirubin (0.0-0.5) mg/dL AST (5-37) U/L ALT (0-40) U/L Alkaline Phosphatase (39-117) U/L Troponin I High Sens (<3.5-35.0) ng/L Total Protein (6.5-8.0) g/dL Albumin (3.5-5.0) g/dL Triglycerides mg/dL Lipase (8-78) U/L Urine Color Dark Yellow Urine Appearance Cloudy Urine pH 5.5 (5.0-9.0) Ur Specific [place] >= 1.030 H (1.005-1.025) Urine Protein 100 (2+) H (Neg-Trace) mg/dL Urine Glucose (UA) Negative (Negative) mg/dL Urine Ketones Negative (Negative) mg/dL Urine Blood Negative (Negative) Urine Nitrite Negative (Negative) Ur Leukocyte Esterase Negative (Negative) Urine RBC 0-2 (0-2) /HPF Urine WBC 0-5 (0-5) /HPF Ur Squamous Epith Cells 0-2 (0-2) /HPF Urine Bacteria None Seen (None Seen) Hyaline Casts 0-2 (0-2) /LPF Urine Opiates Screen Not Detected (Not Detect) Urine Fentanyl Screen Not Detected (Not Detect) Ur Barbiturates Screen Not Detected (Not Detect) Ur Phencyclidine Scrn Not Detected (Not Detect) Ur Amphetamines Screen Not Detected (Not Detect) U Benzodiazepines Scrn Not Detected (Not Detect) Urine Cocaine Screen Not Detected (Not Detect) U Marijuana (THC) Screen POSITIVE H (Not Detect) Ethyl Alcohol mg/dL <GIRISH Umanzor - Last Filed: 02/23/22 21:54> Independent Interpretation I performed an independent interpretation of an: CT Scan <GIRISH Umanzor - Last Filed: 02/23/22 21:54> Radiology Impression Discussion of test interpretation with radiology: I have reviewed the radiologist's reading. <GIRISH Umanzor - Last Filed: 02/23/22 21:54> Core Measures AMI core measures followed: Yes <GIRISH Umanzor - Last Filed: 02/23/22 21:54> Measure exclusions: not indicated <GIRISH Umanzor - Last Filed: 02/23/22 21:54> Medications Administered Discontinued Medications Generic Name Dose Route Start Last Admin Trade Name Freq PRN Reason Stop Dose Admin Sodium Chloride 1,000 mls @ 999 mls/hr 02/23/22 18:45 02/23/22 20:35 Ns IV 02/23/22 19:45 Infused .Q1H1M NICK Infusion Sodium Chloride 1,000 mls @ 999 mls/hr 02/23/22 20:30 02/23/22 20:36 Ns IV 02/23/22 21:30 999 mls/hr .Q1H1M NICK Administration Piperacillin Sod/Tazobactam 50 mls @ 100 mls/hr 02/23/22 21:07 02/23/22 21:35 Sod 3.375 gm/ Sodium Chloride IV 02/23/22 21:36 100 mls/hr ONCE ONE Administration Iohexol 100 ml 02/23/22 21:12 02/23/22 21:15 Iohexol 350 Mg/Ml 100 Ml Infus..Btl IV 02/23/22 21:13 85 ml ONCE ONE Administration Morphine Sulfate 4 mg 02/23/22 20:22 02/23/22 20:36 Morphine Sulfate 4 Mg/Ml Cartridge IVPUSH 02/23/22 20:23 4 mg ONCE ONE Administration Protocol Ondansetron HCl 4 mg 02/23/22 20:32 02/23/22 20:36 Ondansetron Hcl 4 Mg/2 Ml Vial IVPUSH 02/23/22 20:33 4 mg ONCE ONE Administration <GIRISH Reyes - Last Filed: 02/23/22 18:43> Medications Administered Discontinued Medications Generic Name Dose Route Start Last Admin Trade Name Freq PRN Reason Stop Dose Admin Sodium Chloride 1,000 mls @ 999 mls/hr 02/23/22 18:45 02/23/22 20:35 Ns IV 02/23/22 19:45 Infused .Q1H1M NICK Infusion Sodium Chloride 1,000 mls @ 999 mls/hr 02/23/22 20:30 02/23/22 20:36 Ns IV 02/23/22 21:30 999 mls/hr .Q1H1M NICK Administration Piperacillin Sod/Tazobactam 50 mls @ 100 mls/hr 02/23/22 21:07 02/23/22 21:35 Sod 3.375 gm/ Sodium Chloride IV 02/23/22 21:36 100 mls/hr ONCE ONE Administration Iohexol 100 ml 02/23/22 21:12 02/23/22 21:15 Iohexol 350 Mg/Ml 100 Ml Infus..Btl IV 02/23/22 21:13 85 ml ONCE ONE Administration Morphine Sulfate 4 mg 02/23/22 20:22 02/23/22 20:36 Morphine Sulfate 4 Mg/Ml Cartridge IVPUSH 02/23/22 20:23 4 mg ONCE ONE Administration Protocol Ondansetron HCl 4 mg 02/23/22 20:32 02/23/22 20:36 Ondansetron Hcl 4 Mg/2 Ml Vial IVPUSH 02/23/22 20:33 4 mg ONCE ONE Administration <GIRISH Umanzor - Last Filed: 02/23/22 21:54> Critical Care Time Critical Care Time Critical Care Time: No <GIRISH Umanzor - Last Filed: 02/23/22 21:54> Discharge Plan Discharge Clinical Impression: Acute pancreatitis, Nausea & vomiting <GIRISH Reyes Last Filed: 02/23/22 18:43> Patient Disposition: Admitted As Inpatient <GIRISH Reyes - Last Filed: 02/23/22 18:43>
[2022-02-23 18:56] LABS: MANUAL DIFF FLAG NO
[2022-02-23 18:57] LABS: Basophils Percent Auto 0.2 % (0-2); Eosinophils Absolute Auto 0.1 X10*3/uL (0.0-0.4); Eosinophils Percent Auto 0.4 % (0-4); Hematocrit 45.8 % (42.0-52.0); Hemoglobin 15.5 g/dl (14.0-18.0); Imm Gran Abs Auto 0.04 X10*3/uL (0.00-0.03); Imm Gran Pct Auto 0.3 % (0.0-0.4); Lymphocytes Absolute Auto 0.3 X10*3/uL (1.2-4.9); Lymphocytes Percent Auto 2.3 % (20-40); Mean Corpuscular HGB Conc 33.8 g/dl (31.0-36.0); Mean Corpuscular Hemoglobin 28.3 pg (27.0-33.0); Mean Corpuscular Volume 83.7 fL (80.0-98.0); Mean Platelet Volume 8.3 fL (9.4-12.4); Monocytes Absolute Auto 0.9 X10*3/uL (0.1-1.2); Neutrophils Percent Auto 89.8 % (45-73); Platelet Count 238 X10*3/uL (160-400); Red Blood Count 5.47 X10*6/uL (4.60-5.80); Red Cell Distribution Width 13.5 % (11.0-16.0); White Blood Count 12.2 X10*3/uL (4.8-10.8)
[2022-02-23 19:20] LABS: Alanine Aminotransferase 33 U/L (0-40); Albumin Level 4.1 g/dL (3.5-5.0); Alkaline Phosphatase 87 U/L (39-117); Anion Gap 20 (12-20); Aspartate Amino Transferase 40 U/L (5-37); Bilirubin Direct 0.4 mg/dL (0.0-0.5); Bilirubin Total 1.1 mg/dL (0.0-1.0); Blood Urea Nitrogen 15 mg/dL (9-16); Calcium 8.8 mg/dL (8.4-10.2); Carbon Dioxide 18 mmol/L (22-29); Chloride 102 mmol/L (96-108); Creatinine Clr Calc Pharmacy 159.7; Estimated Glomerular Filt Rate > 60; Glucose Random 128 mg/dL (60-115); Magnesium 1.7 mg/dL (1.6-2.6); Potassium 3.7 mmol/L (3.3-5.1); Sodium 136 mmol/L (135-145); Total Protein 7.5 g/dL (6.5-8.0)
[2022-02-23 19:25] LABS: Lipase 465 U/L (8-78); Troponin-I High Sensitivity < 3.5 ng/L (<3.5-35.0)
[2022-02-23] MEDS: 0.9 % Sodium Chloride 1,000 ML 999 ML IV ×3 (19:33→22:24)
[2022-02-23 19:37] LABS: Appearance Urine Cloudy; Color Urine Dark Yellow; Glucose Urine UA Negative (Negative); Leukocyte Esterase Urine Negative (Negative); Nitrite Urine Negative (Negative); PH 5.5 (5.0-9.0); Specific Gravity - Urine >= 1.030 (1.005-1.025); UMIC TRIGGER UACC YES; Urine Blood Negative (Negative); Urine Ketones Negative (Negative); Urine Protein 100 (2+) mg/dL (Neg-Trace)
[2022-02-23 19:53] LABS: Bacteria Urine None Seen (None Seen); Hyaline Casts Urine 0-2 /LPF (0-2); RBC Urine 0-2 /HPF (0-2); Squamous Epithelial Cell Urine 0-2 /HPF (0-2); WBC Urine 0-5 /HPF (0-5)
[2022-02-23 20:00] VITALS: BP 142/105; PULSE 119; RESP 16; TEMP 36.7; O2SAT 98
--- NOTE | 2022-02-23 20:26 | MHC.EDTECH ---
2000 rounding done pt vitals sign taken ,patient was hooked up to ekg monitor ,blood culture and lactic acid drawn and send to lab.
[2022-02-23 20:36] VITALS: RESP 20
[2022-02-23] MEDS: ondansetron HCL 4 MG/2 ML VIAL IVPUSH (20:36)
[2022-02-23] MEDS: Morphine Sulfate 4 MG/ML CARTRIDGE IVPUSH (20:36)
[2022-02-23 20:44] LABS: Triglycerides 437 mg/dL
--- NOTE | 2022-02-23 20:51 | PC.NURSE ---
CIWA scale 5. Pt reports he has 9 shots of alcohol per day.
[2022-02-23 21:00] LABS: Amphetamine Screen Urine Not Detected (Not Detect); Barbiturates, Urine Not Detected (Not Detect); Benzodiazepines Screen Urine Not Detected (Not Detect); Cannabinoid Screen Urine POSITIVE (Not Detect); Cocaine Screen Urine Not Detected (Not Detect); Fentanyl, urine Not Detected (Not Detect); Opiate Screen Urine Not Detected (Not Detect); Phencyclidine Screen Urine Not Detected (Not Detect)
[2022-02-23 21:07] LABS: Lactic Acid 2.3 mmol/L (0.5-2.0)
[2022-02-23] MEDS: iohexoL 350 MG/ML 100 ML INFUS..BTL IV (21:15)
[2022-02-23 21:32] LABS: Ethanol < 10 mg/dL
[2022-02-23] MEDS: Piperacillin Sodium/Tazobactam 3.375 GM in 0.9 % Sodium Chloride 50 ML IV (21:35)
[2022-02-23 21:51] VITALS: BP 139/89; PULSE 87; RESP 16; TEMP 37; O2SAT 100
[2022-02-23] MEDS: Acetaminophen 325 MG TABLET 650 MG PO (22:30)
[2022-02-23 22:31] LABS: Reflex Lactate? Lactic Acid Added
[2022-02-23 22:33] VITALS: BP 129/84; PULSE 92; RESP 22; O2SAT 100
--- NOTE | 2022-02-23 22:37 | PC.NURSE ---
RN spoke to patient he denies taking any home meds at this time.
[2022-02-23 22:39] LABS: COVID-19 Test Negative (Negative); IDNOW Serial# 55D5AD1C
[2022-02-23 22:54] LABS: ~Lactic Acid-LAB USE ONLY 1.7 mmol/L (0.5-2.0)
[2022-02-23] MEDS: Lactated Ringers 1,000 ML 200 ML IVCONT (23:43)
--- NOTE | 2022-02-23 23:46 | P.HPHOSP_ITS ---
History of Present Illness Date of Service: 02/23/22 Chief Complaint: abd pain 26-year-old male with past medical history of asthma and alcohol abuse presents to the hospital with complaints of epigastric abdominal pain radiating to the back. Patient's symptoms started the day prior, patient reports nausea, no vomiting, no diarrhea, no urinary symptoms and no lower extremity edema. Patient is a daily drinker, last drink the night prior, has no withdrawal symptoms at this time no history of withdrawals. On arrival to the ED patient hemodynamically stable with no significant abnormal vitals except for heart rate in the 120s and has now normalized Labs are significant for WBC count of 12.2, lactic acid of 2.3 improved with IV fluids, lipase of 465, Abdomen pelvic CT shows pancreatitis with normal liver, no focal hepatic lesion or biliary ductal dilatation, gallbladder is unremarkable patient being admitted further management Review of Systems Review of Systems: Yes all other systems are reviewed and are negative [facility] Medical History (Updated 02/24/22 @ 06:27 by Sruthi Clemens MD) Alcohol abuse Asthma Surgical History (Updated 02/24/22 @ 06:27 by Sruthi Clemens MD) No pertinent past surgical history Social History Household Members: Family Housing: House Do you presently have visiting nurse or other home services: No Alcohol intake: current Alcohol intake frequency: 0-2 drinks per day Alcohol type: hard liquor Patient Tobacco Use Status: Current someday Tobacco user Tobacco use type: Cigarette Smoked in Last 30 Days: Yes e-Cigarette/Vaping Use: Never Used Patient Interested in Nicotine Replacement: No Patient Given Instructions on How to Stop Smoking: No Second Hand Smoke Exposure: No Use of substances other than those prescribed or required for medical reasons: Yes Substance Use Type: Marijuana Substance Use Frequency: Weekly Last Used Substance: Days (ago) Currently Displaying Signs/Symptoms of Drug Intoxication Withdrawal: No Any prior treatment program specific to substance use: No Have you been hit, kicked, punched, or otherwise hurt by someone within the past year? If so, by whom?: No Do you feel safe in your current relationship?: No Current Relationship Is there a partner from a previous relationship who is making you feel unsafe now?: No Are you made to feel afraid or neglected: No Advance Directives: No Advance Directives Information Provided: No Do you have thoughts of harming others: None Do you have a plan to hurt others: No Plan Recently lost weight without trying: No Eating poorly because of decreased appetite: No Nutrition Risks: No Nutritional Risk Poor oral hygiene: No Meds Allergies Allergy/AdvReac Type Severity Reaction Status Date / Time No Known Allergies Allergy Unverified 10/28/19 16:43 Active Medications: Current Medications Acetaminophen (Acetaminophen 325 Mg Tablet) 650 mg PO Q6H PRN PRN Reason: Pain, Mild (Pain Scale 1-3) Last Admin: 02/23/22 22:30 Dose: 650 mg Docusate Sodium (Docusate Sodium 100 Mg Capsule) 100 mg PO DAILY PRN PRN Reason: Constipation Enoxaparin Sodium (Enoxaparin Sodium 40 Mg/0.4 Ml Syringe) 40 mg SUBCUT Q24H [facility] Lactated Ringer's (Lr) 1,000 mls @ 200 mls/hr IVCONT .Q5H [facility] Last Admin: 02/23/22 23:43 Dose: 200 mls/hr Ondansetron HCl (Ondansetron Hcl 4 Mg/2 Ml Vial) 4 mg IVPUSH Q8H PRN PRN Reason: Nausea and Vomiting Pharmacy Consult (Consult Rx Perform Med Rec) 1 each MISCELLANE ONCE PRN PRN Reason: Consult order Sodium Chloride (0.9 % Sodium Chloride Flush 3 Ml Syringe) 3 ml IVFLUSH QSHIFT [facility] Home Medications Medication Instructions Recorded Confirmed Last Taken Type No Known Home Meds 02/23/22 02/23/22 Unknown History Physical Exam Vital Signs and Narrative: Vital Signs: Last Vital Signs Temp 98.6 F 02/23/22 21:51 Pulse 92 02/23/22 22:33 Resp 22 H 02/23/22 22:33 BP 129/84 02/23/22 22:33 Pulse Ox 100 02/23/22 22:33 O2 Del Method 02/23/22 22:33 BMI result Body Mass Index 30.9 Const: General: cooperative and no acute distress Orientation/ consciousness: patient oriented x3 Eyes: General: appearance normal, both eyes and all related structures Resp: Effort & Inspection: normal respiratory effort Auscultation: clear to auscultation bilaterally Cardio: Rate: regular rate Rhythm: regular rhythm GI: Other: epigastric abdominal tenderness Palpation (GI): Soft to palpation Auscultation: normal bowel sounds Skin: General skin exam: no rashes or lesions noted Neuro: General: patient oriented x3 Cognition (Neuro): normal cognition Extrem: General: Yes normal to inspection and Yes no pedal edema Results Labs 02/23/22 18:52 02/23/22 18:52 Labs: Laboratory Results - last 24 hr 02/23/22 02/23/22 02/23/22 18:52 18:52 18:52 MCV 83.7 MCH 28.3 MCHC 33.8 RDW 13.5 Plt Count 238 MPV 8.3 L Immature Gran % (Auto) 0.3 Neut % (Auto) 89.8 H Lymph % (Auto) 2.3 L [place] % (Auto) 7.0 Eos % (Auto) 0.4 Baso % (Auto) 0.2 Lymph # (Auto) 0.3 L [place] # (Auto) 0.9 Eos # (Auto) 0.1 Baso # (Auto) 0.0 Abs Immat Gran (auto) 0.04 H Absolute Neuts (auto) 11.0 H Absolute Nucleated RBC 0.000 Nucleated RBC % (auto) 0.0 Anion Gap 20 Estim Creat Clear Calc 159.7 Estimated GFR > 60 Random Glucose 128 H Lactic Acid Lactic Acid F/U @ 2Hr Calcium 8.8 D Magnesium 1.7 Total Bilirubin 1.1 H Direct Bilirubin 0.4 AST 40 H ALT 33 Alkaline Phosphatase 87 Troponin I High Sens < 3.5 Total Protein 7.5 Albumin 4.1 Triglycerides 437 Lipase 465 H Urine Color Urine Appearance Urine pH Ur Specific [place] Urine Protein Urine Glucose (UA) Urine Ketones Urine Blood Urine Nitrite Ur Leukocyte Esterase Urine RBC Urine WBC Ur Squamous Epith Cells Urine Bacteria Hyaline Casts Urine Opiates Screen Urine Fentanyl Screen Ur Barbiturates Screen Ur Phencyclidine Scrn Ur Amphetamines Screen U Benzodiazepines Scrn Urine Cocaine Screen U Marijuana (THC) Screen Ethyl Alcohol < 10 COVID-19 (JENELLE) COVID-19 Clin Com 02/23/22 02/23/22 02/23/22 18:55 19:23 20:25 MCV MCH MCHC RDW Plt Count MPV Immature Gran % (Auto) Neut % (Auto) Lymph % (Auto) [place] % (Auto) Eos % (Auto) Baso % (Auto) Lymph # (Auto) [place] # (Auto) Eos # (Auto) Baso # (Auto) Abs Immat Gran (auto) Absolute Neuts (auto) Absolute Nucleated RBC Nucleated RBC % (auto) Anion Gap Estim Creat Clear Calc Estimated GFR Random Glucose Lactic Acid 2.3 H* Lactic Acid F/U @ 2Hr Calcium Magnesium Total Bilirubin Direct Bilirubin AST ALT Alkaline Phosphatase Troponin I High Sens Total Protein Albumin Triglycerides Lipase Urine Color Dark Yellow Urine Appearance Cloudy Urine pH 5.5 Ur Specific [place] >= 1.030 H Urine Protein 100 (2+) H Urine Glucose (UA) Negative Urine Ketones Negative Urine Blood Negative Urine Nitrite Negative Ur Leukocyte Esterase Negative Urine RBC 0-2 Urine WBC 0-5 Ur Squamous Epith Cells 0-2 Urine Bacteria None Seen Hyaline Casts 0-2 Urine Opiates Screen Not Detected Urine Fentanyl Screen Not Detected Ur Barbiturates Screen Not Detected Ur Phencyclidine Scrn Not Detected Ur Amphetamines Screen Not Detected U Benzodiazepines Scrn Not Detected Urine Cocaine Screen Not Detected U Marijuana (THC) Screen POSITIVE H Ethyl Alcohol COVID-19 (JENELLE) COVID-19 [employer] 02/23/22 02/23/22 22:11 22:40 MCV MCH MCHC RDW Plt Count MPV Immature Gran % (Auto) Neut % (Auto) Lymph % (Auto) [place] % (Auto) Eos % (Auto) Baso % (Auto) Lymph # (Auto) [place] # (Auto) Eos # (Auto) Baso # (Auto) Abs Immat Gran (auto) Absolute Neuts (auto) Absolute Nucleated RBC Nucleated RBC % (auto) Anion Gap Estim Creat Clear Calc Estimated GFR Random Glucose Lactic Acid Lactic Acid F/U @ 2Hr 1.7 Calcium Magnesium Total Bilirubin Direct Bilirubin AST ALT Alkaline Phosphatase Troponin I High Sens Total Protein Albumin Triglycerides Lipase Urine Color Urine Appearance Urine pH Ur Specific [place] Urine Protein Urine Glucose (UA) Urine Ketones Urine Blood Urine Nitrite Ur Leukocyte Esterase Urine RBC Urine WBC Ur Squamous Epith Cells Urine Bacteria Hyaline Casts Urine Opiates Screen Urine Fentanyl Screen Ur Barbiturates Screen Ur Phencyclidine Scrn Ur Amphetamines Screen U Benzodiazepines Scrn Urine Cocaine Screen U Marijuana (THC) Screen Ethyl Alcohol COVID-19 (JENELLE) Negative COVID-19 [employer] Com See Note Imaging Radiologist's Impressions: Impressions KUB X-Ray 02/23/22 19:34 IMPRESSION: Nonobstructive abdominal bowel gas pattern. Minimal stool present. Abdomen/Pelvis CT 02/23/22 21:51 IMPRESSION: Fluid density and soft tissue stranding around the pancreas consistent with sequela of pancreatitis. Other findings are as described above Assessment and Plan (1) Acute pancreatitis: Status: Acute (2) Alcohol abuse: Status: Acute (3) Nausea & vomiting: Status: Acute Plan 26-year-old male with past medical history of alcohol abuse presents to the hospital with complaints of abdominal pain found to have acute pancreatitis # acute pancreatitis - likely secondary to alcohol abuse - no evidence of gallbladder disease or bile duct abnormality, triglycerides less than 500 - will treat with IV fluids, pain control, NPO # alcohol abuse with potential for withdrawal - at this time patient is not in withdrawal, ClWA of 5 - monitor withdrawal symptoms - start thiamine and folic acid # nausea and vomiting - secondary to above - will treat with antiemetics, IV fluids # asthma - not in exacerbation DVT prophylaxis: Lovenox given patient's acute pancreatitis patient required minimum 2 nights inpatient hospital stay for further management and monitoring Time Spent With Patient Time: Total time managing care of this patient today ____ minutes. Quality Stroke Does the patient have a stroke diagnosis?: No VTE Prior VTE?: No VTE Risk Level:: Medical - moderate - high VTE Device Contraindication: Treatment Not Indicated VTE Drug Contraindication: N/A - Med Ordered
[2022-02-24 03:22] VITALS: RESP 16
[2022-02-24] MEDS: Morphine Sulfate 4 MG/ML CARTRIDGE IVPUSH (03:22)
[2022-02-24] MEDS: Docusate Sodium 100 MG CAPSULE PO ×2 (03:22→16:40)
[2022-02-24 03:37] VITALS: BP 168/97; PULSE 79; RESP 18; TEMP 36.8; O2SAT 100
--- NOTE | 2022-02-24 03:39 | PC.NURSE ---
Gave nurse to nurse report to Lorna RN r/t pt was transported to Med surg. Last wa 5 no s/sx of alcohol withdrawal time of pt transport. Pt reported to this RN pt normally drinks 9 shots of vodka daily last drink night of 02/23/2022. Ethyl alcohol less than 10. Cortext sent to Dr. Clemens.
[2022-02-24 04:23] VITALS: BMI 32.0
[2022-02-24] MEDS: Lactated Ringers 1,000 ML 200 ML IVCONT ×3 (04:49→19:53)
[2022-02-24 06:36] LABS: MANUAL DIFF FLAG NO
[2022-02-24 06:42] LABS: Basophils Percent Auto 0.1 % (0-2); Hematocrit 41.7 % (42.0-52.0); Hemoglobin 13.8 g/dl (14.0-18.0); Imm Gran Abs Auto 0.03 X10*3/uL (0.00-0.03); Imm Gran Pct Auto 0.4 % (0.0-0.4); Lymphocytes Absolute Auto 0.4 X10*3/uL (1.2-4.9); Lymphocytes Percent Auto 5.3 % (20-40); Mean Corpuscular HGB Conc 33.1 g/dl (31.0-36.0); Mean Corpuscular Volume 84.8 fL (80.0-98.0); Monocytes Absolute Auto 0.8 X10*3/uL (0.1-1.2); Monocytes Percent Auto 9.4 % (2-11); Neutrophils Absolute Auto 6.8 x10*3/uL (2.0-8.3); Neutrophils Percent Auto 84.8 % (45-73); Platelet Count 192 X10*3/uL (160-400); Red Blood Count 4.92 X10*6/uL (4.60-5.80); Red Cell Distribution Width 13.8 % (11.0-16.0)
[2022-02-24 07:30] LABS: Anion Gap 12 (12-20); Blood Urea Nitrogen 11 mg/dL (9-16); Calcium 7.5 mg/dL (8.4-10.2); Carbon Dioxide 23 mmol/L (22-29); Chloride 104 mmol/L (96-108); Creatinine Clr Calc Pharmacy 186.9; Estimated Glomerular Filt Rate > 60; Glucose Random 109 mg/dL (60-115); Potassium 3.3 mmol/L (3.3-5.1); Sodium 136 mmol/L (135-145)
[2022-02-24 07:46] VITALS: BP 140/90; PULSE 77; RESP 18; TEMP 36.5; O2SAT 97
[2022-02-24] MEDS: 0.9 % Sodium Chloride Flush 3 ML SYRINGE IVFLUSH (08:50)
[2022-02-24] MEDS: Enoxaparin Sodium 40 MG/0.4 ML SYRINGE SUBCUT (08:50)
[2022-02-24] MEDS: Magnesium Sulfate/D5W 1 GM/100 ML PIGGYBACK IV (08:50)
--- NOTE | 2022-02-24 08:58 | PHA.MEDREC ---
Pharmacy Consult ? Medication Reconciliation Pharmacy has completed the medication reconciliation.
[2022-02-24] MEDS: Acetaminophen 325 MG TABLET 650 MG PO ×3 (09:36→23:30)
[2022-02-24] MEDS: Potassium Chloride/H20 10 MEQ/100 ML PIGGYBACK 100 MEQ IV ×2 (10:15→11:37)
--- NOTE | 2022-02-24 11:36 | P.PNIM_ITS ---
Subjective Subjective Date of Service: 02/24/22 Interval History: acute pancreatitis -likely related to alcohol use high TG Review of Systems has abdominal pain , nausea ,vomiting, unable to tolerate diet feels constipated also Denies any new complaint of chest pain or shortness of breath or fever or chills Denies any cough Denies any weakness or numbness. Physical Exam Vital Signs: Vital Signs: Last Vital Signs Temp 97.7 F 02/24/22 07:46 Pulse 77 02/24/22 07:46 Resp 18 02/24/22 07:46 BP 140/90 H 02/24/22 07:46 Pulse Ox 97 02/24/22 07:46 O2 Del Method 02/24/22 07:46 BMI result Body Mass Index 32.0 Appearance: Alert.? Oriented X3.? not in distress.? Eyes: Pupils equal, round and reactive to light.? Sclera nonicteric.? ENT: Pharynx normal.? Moist mucous membranes. cvs: rrr, [id number] . res: clear to auscultation ,no rhonchii or wheezing abd: no rebound or guarding ,abd pain, bs present. ext pulses present , no cyanosis ,Gait well balanced well coordinated. neuro: axo3 , nonfocal. Objective Data Active Medications Acetaminophen (Acetaminophen 325 Mg Tablet) 650 mg PO Q6H PRN PRN Reason: Pain, Mild (Pain Scale 1-3) Last Admin: 02/24/22 09:36 Dose: 650 mg Documented By: NICKIE Docusate Sodium (Docusate Sodium 100 Mg Capsule) 100 mg PO DAILY PRN PRN Reason: Constipation Last Admin: 02/24/22 03:22 Dose: 100 mg Documented By: MIKEY Enoxaparin Sodium (Enoxaparin Sodium 40 Mg/0.4 Ml Syringe) 40 mg SUBCUT Q24H [facility] Last Admin: 02/24/22 08:50 Dose: 40 mg Documented By: NICKIE Lactated Ringer's (Lr) 1,000 mls @ 200 mls/hr IVCONT .Q5H [facility] Last Infusion: 02/24/22 10:00 Dose: 0 mls/hr Documented By: NICKIE Morphine Sulfate (Morphine Sulfate 4 Mg/Ml Cartridge) 4 mg IVPUSH Q4H PRN; Protocol PRN Reason: Pain, Severe (Pain Scale 7-10) Last Admin: 02/24/22 03:22 Dose: 4 mg Documented By: MIKEY Ondansetron HCl (Ondansetron Hcl 4 Mg/2 Ml Vial) 4 mg IVPUSH Q8H PRN PRN Reason: Nausea and Vomiting Pantoprazole Sodium (Pantoprazole Sodium 40 Mg/10 Ml Vial) 40 mg IVPUSH BID@0630,1630 [facility] Pharmacy Consult (Consult Rx Perform Med Rec) 1 each MISCELLANE ONCE PRN PRN Reason: Consult order Polyethylene Glycol (Polyethylene Glycol 3350 17 Gm Powd.Pack) 17 gm PO DAILY [facility] Sodium Chloride (0.9 % Sodium Chloride Flush 3 Ml Syringe) 3 ml IVFLUSH QSHIFT [facility] Last Admin: 02/24/22 08:50 Dose: 3 ml Documented By: NICKIE Labs 02/24/22 05:54 02/24/22 05:54 Labs: Laboratory Results - last 24 hr 02/23/22 02/23/22 02/23/22 18:52 18:52 18:52 MCV 83.7 MCH 28.3 MCHC 33.8 RDW 13.5 Plt Count 238 MPV 8.3 L Immature Gran % (Auto) 0.3 Neut % (Auto) 89.8 H Lymph % (Auto) 2.3 L [place] % (Auto) 7.0 Eos % (Auto) 0.4 Baso % (Auto) 0.2 Lymph # (Auto) 0.3 L [place] # (Auto) 0.9 Eos # (Auto) 0.1 Baso # (Auto) 0.0 Abs Immat Gran (auto) 0.04 H Absolute Neuts (auto) 11.0 H Absolute Nucleated RBC 0.000 Nucleated RBC % (auto) 0.0 Anion Gap 20 Estim Creat Clear Calc 159.7 Estimated GFR > 60 Random Glucose 128 H Lactic Acid Lactic Acid F/U @ 2Hr Calcium 8.8 D Magnesium 1.7 Total Bilirubin 1.1 H Direct Bilirubin 0.4 AST 40 H ALT 33 Alkaline Phosphatase 87 Troponin I High Sens < 3.5 Total Protein 7.5 Albumin 4.1 Triglycerides 437 Lipase 465 H Urine Color Urine Appearance Urine pH Ur Specific [place] Urine Protein Urine Glucose (UA) Urine Ketones Urine Blood Urine Nitrite Ur Leukocyte Esterase Urine RBC Urine WBC Ur Squamous Epith Cells Urine Bacteria Hyaline Casts Urine Opiates Screen Urine Fentanyl Screen Ur Barbiturates Screen Ur Phencyclidine Scrn Ur Amphetamines Screen U Benzodiazepines Scrn Urine Cocaine Screen U Marijuana (THC) Screen Ethyl Alcohol < 10 COVID-19 (JENELLE) COVID-19 IID 02/23/22 02/23/22 02/23/22 18:55 19:23 20:25 MCV MCH MCHC RDW Plt Count MPV Immature Gran % (Auto) Neut % (Auto) Lymph % (Auto) [place] % (Auto) Eos % (Auto) Baso % (Auto) Lymph # (Auto) [place] # (Auto) Eos # (Auto) Baso # (Auto) Abs Immat Gran (auto) Absolute Neuts (auto) Absolute Nucleated RBC Nucleated RBC % (auto) Anion Gap Estim Creat Clear Calc Estimated GFR Random Glucose Lactic Acid 2.3 H* Lactic Acid F/U @ 2Hr Calcium Magnesium Total Bilirubin Direct Bilirubin AST ALT Alkaline Phosphatase Troponin I High Sens Total Protein Albumin Triglycerides Lipase Urine Color Dark Yellow Urine Appearance Cloudy Urine pH 5.5 Ur Specific [place] >= 1.030 H Urine Protein 100 (2+) H Urine Glucose (UA) Negative Urine Ketones Negative Urine Blood Negative Urine Nitrite Negative Ur Leukocyte Esterase Negative Urine RBC 0-2 Urine WBC 0-5 Ur Squamous Epith Cells 0-2 Urine Bacteria None Seen Hyaline Casts 0-2 Urine Opiates Screen Not Detected Urine Fentanyl Screen Not Detected Ur Barbiturates Screen Not Detected Ur Phencyclidine Scrn Not Detected Ur Amphetamines Screen Not Detected U Benzodiazepines Scrn Not Detected Urine Cocaine Screen Not Detected U Marijuana (THC) Screen POSITIVE H Ethyl Alcohol COVID-19 (JENELLE) COVID-19 IID 02/23/22 02/23/22 02/24/22 22:11 22:40 05:54 MCV 84.8 MCH 28.0 MCHC 33.1 RDW 13.8 Plt Count 192 MPV 9.0 L Immature Gran % (Auto) 0.4 Neut % (Auto) 84.8 H Lymph % (Auto) 5.3 L [place] % (Auto) 9.4 Eos % (Auto) 0.0 Baso % (Auto) 0.1 Lymph # (Auto) 0.4 L [place] # (Auto) 0.8 Eos # (Auto) 0.0 Baso # (Auto) 0.0 Abs Immat Gran (auto) 0.03 Absolute Neuts (auto) 6.8 Absolute Nucleated RBC 0.000 Nucleated RBC % (auto) 0.0 Anion Gap Estim Creat Clear Calc Estimated GFR Random Glucose Lactic Acid Lactic Acid F/U @ 2Hr 1.7 Calcium Magnesium Total Bilirubin Direct Bilirubin AST ALT Alkaline Phosphatase Troponin I High Sens Total Protein Albumin Triglycerides Lipase Urine Color Urine Appearance Urine pH Ur Specific [place] Urine Protein Urine Glucose (UA) Urine Ketones Urine Blood Urine Nitrite Ur Leukocyte Esterase Urine RBC Urine WBC Ur Squamous Epith Cells Urine Bacteria Hyaline Casts Urine Opiates Screen Urine Fentanyl Screen Ur Barbiturates Screen Ur Phencyclidine Scrn Ur Amphetamines Screen U Benzodiazepines Scrn Urine Cocaine Screen U Marijuana (THC) Screen Ethyl Alcohol COVID-19 (JENELLE) Negative COVID-19 Clin Com See Note 02/24/22 05:54 MCV MCH MCHC RDW Plt Count MPV Immature Gran % (Auto) Neut % (Auto) Lymph % (Auto) [place] % (Auto) Eos % (Auto) Baso % (Auto) Lymph # (Auto) [place] # (Auto) Eos # (Auto) Baso # (Auto) Abs Immat Gran (auto) Absolute Neuts (auto) Absolute Nucleated RBC Nucleated RBC % (auto) Anion Gap 12 Estim Creat Clear Calc 186.9 Estimated GFR > 60 Random Glucose 109 Lactic Acid Lactic Acid F/U @ 2Hr Calcium 7.5 L D Magnesium Total Bilirubin Direct Bilirubin AST ALT Alkaline Phosphatase Troponin I High Sens Total Protein Albumin Triglycerides Lipase Urine Color Urine Appearance Urine pH Ur Specific [place] Urine Protein Urine Glucose (UA) Urine Ketones Urine Blood Urine Nitrite Ur Leukocyte Esterase Urine RBC Urine WBC Ur Squamous Epith Cells Urine Bacteria Hyaline Casts Urine Opiates Screen Urine Fentanyl Screen Ur Barbiturates Screen Ur Phencyclidine Scrn Ur Amphetamines Screen U Benzodiazepines Scrn Urine Cocaine Screen U Marijuana (THC) Screen Ethyl Alcohol COVID-19 (JENELLE) COVID-19 Clin Com Assessment and Plan (1) Acute pancreatitis: Status: Acute (2) Nausea & vomiting: Status: Acute (3) Alcohol abuse: Status: Acute Plan 26-year-old male with past medical history of alcohol abuse presents to the hospital with complaints of abdominal pain found to have acute pancreatitis #? acute pancreatitis -? likely secondary to alcohol abuse -? no evidence of gallbladder disease or bile duct abnormality, triglycerides less than 500 still significant pain -? will treat with IV fluids,ppi, pain control, NPO #? alcohol abuse with potential for withdrawal -? at this time patient is not in withdrawal, ClWA of 5 -? monitor withdrawal symptoms -? start thiamine and folic acid will add po phenobarbital taper #? nausea and vomiting -? secondary to above -? will treat with antiemetics, IV fluids #? asthma -? not in exacerbation overweight:encouraged to lose weight Constipation: Encouraged for to get out of bed, added laxatives. The ?DVT prophylaxis:? Lovenox ongoing inpatient need:acute pancreatitis, persistent nausea vomiting, unable to tolerate p.o. diet-need IV hydration, IV pain medication Time Spent With Patient Time: Total time managing care of this patient today ____ minutes. Quality Stroke Does the patient have a stroke diagnosis?: No VTE Prior VTE?: No VTE Risk Level:: Medical - moderate - high VTE Device Contraindication: Treatment Not Indicated VTE Drug Contraindication: N/A - Med Ordered
[2022-02-24] MEDS: Thiamine HCL 100 MG in 0.9 % Sodium Chloride 100 ML 202 MG IV (12:32)
[2022-02-24] MEDS: Folic Acid 1 MG TABLET PO (12:33)
[2022-02-24] MEDS: polyethylene glycoL 3350 17 GM POWD.PACK PO (12:33)
[2022-02-24] MEDS: PHENobarbitaL 15 MG TABLET 45 MG PO ×2 (12:33→19:54)
[2022-02-24] MEDS: Pantoprazole Sodium 40 MG/10 ML VIAL IVPUSH (12:45)
--- NOTE | 2022-02-24 14:33 | MHC.RECOVRN ---
This documentation writer met w/ patient, after addiction consult was placed. Patient was alert, sitting up in bed, watching t.v. Patient reports increased drinking ETOH during the pandemic and after a break up, 2 years ago. Patient reports drinking 9 shots daily ETOH for several months to years. Patient reports in the past had going 1-2 days with decreased use. Patient reports no history of treatment for ETOH use, no ALKA. This documentation writer and patient reviewed risks with stopping ETOH use. Patient verbalized understanding. Patient reports no history of seizures. Patient states in the past had felt tremors, nausea in the a.m after a heavy night of drinking. This documentation writer and patient discussed harm reduction, MAT, recovery supports. Patient interested in referral to [facility]. Recovery supports information left at bedside. Patient encouraged to contact [facility]. Patient reports has stable housing, patient states has peers supportive of recovery. T/W will place referral to [facility].
--- NOTE | 2022-02-24 15:15 | MHC.CM.PN ---
EMR REVIEWED, PT ADMITTED W/ACUTE PANCREATITIS, CM MET W/PT WHO REPORTS HE LIVES ALONE, IS INDEP W/ALL CARE, DENIES USE OF DME/HOME SERIVES, PT ALSO MET W/RECOVERY NURSE WHO PROVIDED PT W/OUTPT RESOURCES AND WILL PLACE A REFERRAL TO [facility]. PT VERIFIES COVID VACCINATED X3, DENIES HAVING A PCP AND EDUCATED ON AND DECLINES TO COMPLETE A HCP. ANTIC D/C HOME NO SERVICES W/PT TO ARRANGE TRANSPORT ONCE MEDICALLY CLEARED
[2022-02-24 15:53] VITALS: BP 145/70; PULSE 75; RESP 18; TEMP 36.9; O2SAT 97
[2022-02-24 19:09] VITALS: BP 141/94; PULSE 85; RESP 18; TEMP 37.2; O2SAT 96
[2022-02-24] MEDS: Lactulose 20 GM/30 ML SOLUTION PO (19:54)
[2022-02-24] MEDS: Simethicone 80 MG TAB.CHEW PO (19:56)
[2022-02-25] MEDS: Lactated Ringers 1,000 ML 200 ML IVCONT ×5 (00:29→19:32)
[2022-02-25 03:02] VITALS: BP 138/83; PULSE 91; RESP 18; TEMP 36.3; O2SAT 96
[2022-02-25] MEDS: Pantoprazole Sodium 40 MG/10 ML VIAL IVPUSH ×2 (05:34→17:19)
[2022-02-25 07:52] VITALS: BP 137/88; PULSE 103; RESP 16; TEMP 36.7; O2SAT 97
--- NOTE | 2022-02-25 08:31 | HO.PM.IMPN ---
Subjective Subjective Date of Service: 02/25/22 Interval History: Follow-up for pancreatitis Review of Systems Patient still feels bloated, nauseated, abdominal pain present, still tolerating only clear liquids Denies any chest pain or shortness of breath or fever or chills Physical Exam Vital Signs: Vital Signs: Last Vital Signs Temp 98.1 F 02/25/22 07:52 Pulse 103 H 02/25/22 07:52 Resp 16 02/25/22 07:52 BP 137/88 02/25/22 07:52 Pulse Ox 97 02/25/22 07:52 O2 Del Method 02/25/22 07:52 BMI result Body Mass Index 32.0 Appearance: Alert.? Oriented X3.?still intermittent pain. cvs: rrr, [id number] . res: clear to auscultation ,no rhonchii or wheezing abd: no rebound or guarding,abd pain mostly left sided , bs present. ext pulses present , no cyanosis . neuro: axo3 , nonfocal. Objective Data Active Medications Acetaminophen (Acetaminophen 325 Mg Tablet) 650 mg PO Q6H PRN PRN Reason: Pain, Mild (Pain Scale 1-3) Last Admin: 02/24/22 23:30 Dose: 650 mg Documented By: DORIS Docusate Sodium (Docusate Sodium 100 Mg Capsule) 100 mg PO DAILY PRN PRN Reason: Constipation Last Admin: 02/24/22 16:40 Dose: 100 mg Documented By: OWEN Enoxaparin Sodium (Enoxaparin Sodium 40 Mg/0.4 Ml Syringe) 40 mg SUBCUT Q24H [facility] Last Admin: 02/24/22 08:50 Dose: 40 mg Documented By: NICKIE Folic Acid (Folic Acid 1 Mg Tablet) 1 mg PO DAILY [facility] Last Admin: 02/24/22 12:33 Dose: 1 mg Documented By: NICKIE Lactated Ringer's (Lr) 1,000 mls @ 200 mls/hr IVCONT .Q5H [facility] Last Admin: 02/25/22 05:00 Dose: 200 mls/hr Documented By: DORIS Thiamine HCl 100 mg/ Sodium (Chloride) 101 mls @ 202 mls/hr IV DAILY [facility] Last Infusion: 02/24/22 13:14 Dose: 0 mls/hr Documented By: NICKIE Morphine Sulfate (Morphine Sulfate 4 Mg/Ml Cartridge) 4 mg IVPUSH Q4H PRN; Protocol PRN Reason: Pain, Severe (Pain Scale 7-10) Last Admin: 02/24/22 03:22 Dose: 4 mg Documented By: MIKEY Ondansetron HCl (Ondansetron Hcl 4 Mg/2 Ml Vial) 4 mg IVPUSH Q8H PRN PRN Reason: Nausea and Vomiting Pantoprazole Sodium (Pantoprazole Sodium 40 Mg/10 Ml Vial) 40 mg IVPUSH BID@0630,1630 [facility] Last Admin: 02/25/22 05:34 Dose: 40 mg Documented By: DORIS Pharmacy Consult (Consult Rx Perform Med Rec) 1 each MISCELLANE ONCE PRN PRN Reason: Consult order Pharmacy Consult (Consult Rx Etoh Phenob Po Only) 1 each MISCELLANE ONCE PRN; Protocol PRN Reason: Consult order Phenobarbital (Phenobarbital 15 Mg Tablet) 45 mg PO BID [facility] Stop: 02/25/22 21:01 Last Admin: 02/24/22 19:54 Dose: 45 mg Documented By: OWEN Phenobarbital (Phenobarbital 15 Mg Tablet) 15 mg PO BID [facility] Stop: 02/27/22 21:01 Phenobarbital (Phenobarbital 15 Mg Tablet) 15 mg PO DAILY [facility] Stop: 03/01/22 09:01 Polyethylene Glycol (Polyethylene Glycol 3350 17 Gm Powd.Pack) 17 gm PO DAILY [facility] Last Admin: 02/24/22 12:33 Dose: 17 gm Documented By: NICKIE Simethicone (Simethicone 80 Mg Tab.Chew) 80 mg PO QIDWMHS PRN PRN Reason: Bloating Last Admin: 02/24/22 19:56 Dose: 80 mg Documented By: OWEN Sodium Chloride (0.9 % Sodium Chloride Flush 3 Ml Syringe) 3 ml IVFLUSH QSHIFT [facility] Last Admin: 02/25/22 00:12 Dose: Not Given Documented By: DORIS Non-Admin Reason: IV Running Labs 02/24/22 05:54 02/24/22 05:54 Microbiology Microbiology Results: Microbiology 02/23/22 20:25 Blood Culture - Preliminary Blood - Venous No growth after 24 hours. 02/23/22 20:25 Blood Culture - Preliminary Blood - Venous No growth after 24 hours. Assessment and Plan (1) Acute pancreatitis: Status: Acute (2) Nausea & vomiting: Status: Acute (3) Alcohol abuse: Status: Acute Plan 26-year-old male with past medical history of alcohol abuse presents to the hospital with complaints of abdominal pain found to have acute pancreatitis #? acute pancreatitis able to tolerate clear with pain ,no optimum yet ,will try trial of full liquids. -? likely secondary to alcohol abuse -? no evidence of gallbladder disease or bile duct abnormality, triglycerides less than 500 still significant pain -? will treat with IV fluids,ppi, pain control,clear liquids #? alcohol abuse with potential for withdrawal -? at this time patient is not in withdrawal -? monitor withdrawal symptoms -? start thiamine and folic acid will add po phenobarbital taper #? nausea -? secondary to above -? will treat with antiemetics, IV fluids #? asthma -? not in exacerbation overweight:encouraged to lose weight Constipation/bloated : kub seems fine added luxative ,ppi. Encouraged for to get out of bed, added laxatives. The ?DVT prophylaxis:? Lovenox ongoing inpatient need:acute pancreatitis, persistent nausea vomiting, unable to tolerate p.o. diet-need IV hydration, IV pain medication Time Spent With Patient Time: Total time managing care of this patient today ____ minutes. Quality Stroke Does the patient have a stroke diagnosis?: No VTE Prior VTE?: No VTE Risk Level:: Medical - moderate - high VTE Device Contraindication: Treatment Not Indicated VTE Drug Contraindication: N/A - Med Ordered
[2022-02-25] MEDS: Folic Acid 1 MG TABLET PO (09:08)
[2022-02-25] MEDS: Enoxaparin Sodium 40 MG/0.4 ML SYRINGE SUBCUT (09:08)
[2022-02-25] MEDS: PHENobarbitaL 15 MG TABLET 45 MG PO ×2 (09:08→20:28)
[2022-02-25] MEDS: Thiamine HCL 100 MG in 0.9 % Sodium Chloride 100 ML 202 MG IV (09:08)
[2022-02-25] MEDS: 0.9 % Sodium Chloride Flush 3 ML SYRINGE IVFLUSH (09:08)
[2022-02-25] MEDS: polyethylene glycoL 3350 17 GM POWD.PACK PO (09:14)
[2022-02-25] MEDS: Potassium Chloride Packet 20 MEQ PACKET 40 MEQ PO (12:03)
[2022-02-25] MEDS: Famotidine 20 MG TABLET PO (12:03)
[2022-02-25] MEDS: Milk of Magnesia 30 ML ORAL.SUSP 15 ML PO (12:03)
--- NOTE | 2022-02-25 14:37 | MHC.RECOVRN ---
Met with pt for follow up and support after meeting with RSRN yesterday. Pt sitting in bed, awake, alert, easily engages in conversation, watching TV and eating ice cream. Pt reports feeling better and is able to eat now that he is not backed up. Pt denies withdrawal symptoms. Denies questions or concerns related to recovery resources and supports. T/w available as needed.
[2022-02-25 15:21] VITALS: BP 144/85; PULSE 84; RESP 16; TEMP 37.1; O2SAT 100
[2022-02-25 19:29] VITALS: BP 133/78; PULSE 99; RESP 16; TEMP 36.8; O2SAT 98
[2022-02-26 03:37] VITALS: BP 131/84; PULSE 95; RESP 18; TEMP 36.8; O2SAT 97
[2022-02-26] MEDS: Pantoprazole Sodium 40 MG/10 ML VIAL IVPUSH (05:34)
[2022-02-26 07:37] VITALS: BP 131/79; PULSE 95; RESP 17; TEMP 36.3; O2SAT 95
[2022-02-26] MEDS: 0.9 % Sodium Chloride Flush 3 ML SYRINGE IVFLUSH (08:56)
[2022-02-26] MEDS: Thiamine HCL 100 MG in 0.9 % Sodium Chloride 100 ML 202 MG IV (08:57)
[2022-02-26] MEDS: Enoxaparin Sodium 40 MG/0.4 ML SYRINGE SUBCUT (08:57)
[2022-02-26] MEDS: polyethylene glycoL 3350 17 GM POWD.PACK PO (08:58)
[2022-02-26] MEDS: Folic Acid 1 MG TABLET PO (08:58)
[2022-02-26] MEDS: PHENobarbitaL 15 MG TABLET PO (08:58)
--- NOTE | 2022-02-26 10:43 | MHC.CM.PN ---
Addendum entered by Mackenzie Amato RN 02/26/22 14:15: PATIENT IS DC HOME - SELF CARE Original Note: IF PATIENT TOLERATES ADVANCE OF DIET, HE CAN DC HOME TODAY - SELF CARE
--- NOTE | 2022-02-26 14:15 | PM.DS ---
DS: Providers Provider Date of Service: 02/26/22 Date of admission: 02/23/22 22:13 Primary care physician: Unknown Physician Consults: 02/24/22 11:46 Addiction Medicine Routine Consulting Provider: Addiction Covering Reason for consultation: alcohol use Has provider been notified: No DS: Diagnosis Discharge Diagnosis (1) Acute pancreatitis: Status: Acute (2) Nausea & vomiting: Status: Acute (3) Alcohol abuse: Status: Acute DS: Summary Hospital Course Hospital Course: Chief Complaint: abd pain ?26-year-old male with past medical history of? asthma and alcohol abuse presents to the hospital with complaints of epigastric abdominal pain radiating to the back.? Patient's symptoms started? the day prior, patient reports nausea, no vomiting, no diarrhea, no urinary symptoms and no lower extremity edema.? Patient is a daily drinker, last drink the night prior, has no withdrawal symptoms at this time no history of withdrawals.? On arrival to the ED patient hemodynamically stable with no significant abnormal vitals except for heart rate in the 120s and has now normalized Labs are significant for WBC count of 12.2, lactic acid of 2.3 improved with IV fluids, lipase of 465, Abdomen pelvic CT shows pancreatitis with normal liver, no focal hepatic lesion or biliary ductal dilatation, gallbladder is unremarkable ?patient being admitted further management Hospital course: Patient was admitted fo alcoholic pancreatitis, associated with nausea and vomitting. He was hydrated with IVF and treated with IV pain medication and once improved diet was slowly advaced and is presently tolerating regular diet. He has been counceled on the dangers of alcohol use. He did not show any signs of alcohol withdrawal while in the hospital. Time Spent with Patient Time attestation: Total time managing care of this patient today ____ minutes. Discharge coordination time: Greater than 30 minutes Quality: Safe Use of Opioids Does Pt have an Active Cancer Diagnosis on the Problem List?: No Quality: Stroke Does the patient have a stroke diagnosis?: No Physical Exam Vital Signs: Vital Signs: Last Vital Signs Temp 97.4 F 02/26/22 07:37 Pulse 95 02/26/22 07:37 Resp 17 02/26/22 07:37 BP 131/79 02/26/22 07:37 Pulse Ox 95 02/26/22 07:37 O2 Del Method 02/26/22 07:37 BMI result Body Mass Index 32.0 DS: Data Data Completed and Pending Labs on day of discharge: Preliminary micro results at discharge 02/23/22 20:25 Blood Culture - Preliminary Blood - Venous No growth after 48 hours. 02/23/22 20:25 Blood Culture - Preliminary Blood - Venous No growth after 48 hours. Discharge Plan Discharge Anticipated Discharge Date/Time: 02/26/22 14:09 Patient Disposition: Home, Self-Care Discharge Diagnosis: Acute pancreatitis Referrals: Physician,Unknown J [Primary Care Provider] - 1 Week Discharge Medications: Continued multivitamin Tablet 1 tab PO DAILY ibuprofen [Advil] 200 mg Tablet 400 mg PO Q8H PRN (Reason: Pain) sennosides 25 mg Tablet 25 mg PO DAILY PRN (Reason: Constipation) Discharge Orders: Discharge Order (Routine); Ordered 02/26/22 Ordered By: Nilo Flores Diet: Advance to usual diet Activity on Discharge: As tolerated Stand Alone Forms: Patient Portal Discharge page Care Plan Goals: recovery from alcoholic pancreatitis Health Concerns: alcohol use pancreatitis Plan of Treatment: avoid alcohol, follow up with your Doctor in a week, call for appointment Assessment: as above
[2022-02-26 15:24] VITALS: BP 131/76; PULSE 116; RESP 16; TEMP 36.2; O2SAT 94
== END 2022-02-26 16:48 | disposition home or self-care (01) | DRG 440 ==
LOC: HO.ED 21:54 → HO.EDOVER 22:49 → HO.S3 02-24 01:50
PROVIDERS: Physician Assistant; Admitting Provider Internal Medicine; Emergency Provider Emergency Medicine; Visit Provider Internal Medicine
DX: K85.20 Alcohol induced acute pancreatitis without necrosis or infection (principal); F10.10 Alcohol abuse, uncomplicated; F17.210 Nicotine dependence, cigarettes, uncomplicated; Z71.6 Tobacco abuse counseling; K59.00 Constipation, unspecified; J45.909 Unspecified asthma, uncomplicated; E66.3 Overweight; Z68.32 Body mass index [BMI] 32.0-32.9, adult; Z71.3 Dietary counseling and surveillance; Z20.822 Contact with and (suspected) exposure to COVID-19
CPT/HCPCS: 36415; 74018; 74177; 80048; 80076; 80307; 81001; 82077; 83605; 83690; 83735; 84478; 84484; 85025; 87040; 87635; 93005; 99285; J1650; J2270; J2405; J2543; J3411; J3475; Q9967

== ENCOUNTER 2023-05-14 04:27 | Inpatient (IN) | payer OTHER, SELFPAY ==
[2023-05-14 04:31] VITALS: BP 162/108; PULSE 74; O2SAT 99
[2023-05-14 04:37] VITALS: BP 136/95; PULSE 87; RESP 16; TEMP 36.9; O2SAT 97; BMI 33.5
[2023-05-14 05:02] LABS: Basophils Percent Auto 0.1 % (0-2); Eosinophils Percent Auto 0.1 % (0-4); Hematocrit 43.3 % (42.0-52.0); Hemoglobin 14.3 g/dl (14.0-18.0); Imm Gran Abs Auto 0.03 X10*3/uL (0.00-0.03); Imm Gran Pct Auto 0.3 % (0.0-0.4); Lymphocytes Absolute Auto 0.7 X10*3/uL (1.2-4.9); Lymphocytes Percent Auto 5.6 % (20-40); MANUAL DIFF FLAG NO; Mean Corpuscular Hemoglobin 26.4 pg (27.0-33.0); Mean Corpuscular Volume 79.9 fL (80.0-98.0); Monocytes Absolute Auto 0.9 X10*3/uL (0.1-1.2); Monocytes Percent Auto 7.9 % (2-11); Platelet Count 271 X10*3/uL (160-400); Red Blood Count 5.42 X10*6/uL (4.60-5.80); Red Cell Distribution Width 14.5 % (11.0-16.0); White Blood Count 11.6 X10*3/uL (4.8-10.8)
[2023-05-14 05:24] LABS: Alanine Aminotransferase 31 U/L (0-40); Albumin Level 4.2 g/dL (3.5-5.0); Alkaline Phosphatase 92 U/L (39-117); Anion Gap 15 (12-20); Aspartate Amino Transferase 25 U/L (5-37); Bilirubin Direct 0.4 mg/dL (0.0-0.5); Bilirubin Total 1.1 mg/dL (0.0-1.0); Blood Urea Nitrogen 18 mg/dL (9-16); Calcium 9.8 mg/dL (8.4-10.2); Carbon Dioxide 24 mmol/L (22-29); Chloride 102 mmol/L (96-108); Creatinine Clr Calc Pharmacy 166.9; Estimated Glomerular Filt Rate > 60; Glucose Random 144 mg/dL (60-115); Sodium 137 mmol/L (135-145); Total Protein 7.6 g/dL (6.5-8.0)
[2023-05-14 05:28] LABS: Lipase 781 U/L (8-78)
[2023-05-14 09:59] LABS: Appearance Urine Clear; Color Urine Yellow; Glucose Urine UA Negative (Negative); Leukocyte Esterase Urine Negative (Negative); Nitrite Urine Negative (Negative); PH 6.5 (5.0-9.0); UMIC TRIGGER UACC YES; Urine Blood Negative (Negative); Urine Ketones 80 mg/dL (Negative); Urine Protein 30 (1+) mg/dL (Neg-Trace)
[2023-05-14 10:00] VITALS: BP 145/94; PULSE 63; RESP 16; TEMP 36.6; O2SAT 97
[2023-05-14] MEDS: 0.9 % Sodium Chloride 1,000 ML 999 ML IVCONT ×2 (10:00→11:15)
[2023-05-14] MEDS: ondansetron HCL 4 MG/2 ML VIAL IVPUSH (10:00)
[2023-05-14] MEDS: Pantoprazole Sodium 40 MG/10 ML VIAL IVPUSH ×2 (10:00→18:46)
[2023-05-14] MEDS: Morphine Sulfate 4 MG/ML CARTRIDGE IVPUSH (10:00)
[2023-05-14 10:04] LABS: Bacteria Urine None Seen (None Seen); Hyaline Casts Urine 0-2 /LPF (0-2); RBC Urine 0-2 /HPF (0-2); Squamous Epithelial Cell Urine 0-2 /HPF (0-2); WBC Urine 0-5 /HPF (0-5)
--- NOTE | 2023-05-14 10:04 | PC.NURSE ---
patient a&ox3, iv inserted, labs previously drawn, pt c/o 6-08/19 abd pain, ivf started per order, pt medicated per order, vss, call jenkins within reach, will continue to monitor.
--- NOTE | 2023-05-14 10:22 | ED_ITS ---
HPI - Abdominal Pain General Chief Complaint: Abdominal Pain Stated Complaint: VOMITTING/ABDOMINAL PAIN Time Seen by Provider: 05/14/23 09:07 Source: patient Mode of arrival: ambulatory Limitations: no limitations History of Present Illness HPI narrative: Patient is a 28yo male with history of pancreatitis admitted in February. CT of abdomen at that time showed pancreatic inflammation with fluid around the pancreas. Patient continues to drink alcohol, denies history of withdrawal MD elicited complaint: abdominal pain Onset (ago): day(s) Pain Consistency: constant Location: epigastric Severity: moderate Exacerbating factors: vomiting Associated symptoms: nausea and vomiting Related Data Home Medications Medication Instructions Recorded Confirmed ibuprofen 200 mg tablet (Advil) 400 mg PO Q8H PRN Pain 02/24/22 02/24/22 multivitamin 1 tab PO DAILY 02/24/22 02/24/22 sennosides 25 mg tablet 25 mg PO DAILY PRN Constipation 02/24/22 02/24/22 Allergies Allergy/AdvReac Type Severity Reaction Status Date / Time egg Allergy Unknown Verified 05/14/23 04:42 Review of Systems Review of Systems Yes all other systems are reviewed and are negative Denies Sensory deficit (Neuro) [facility] Past Medical History Medical History Asthma Alcohol abuse Surgical History No pertinent past surgical history Social History Social History Household Members: Family Housing: House Do you presently have visiting nurse or other home services: No Alcohol intake: current Alcohol intake frequency: 0-2 drinks per day Alcohol type: hard liquor Comment: refusing alarms Patient Tobacco Use Status: Current someday Tobacco user Tobacco use type: Cigarette Smoked in Last 30 Days: No e-Cigarette/Vaping Use: Never Used Second Hand Smoke Exposure: No Substance Use Type: Marijuana Advance Directives: No Advance Directives Information Provided: No service: No Current occupational status: employed Physical Exam ED Vital Signs: Vital Signs - 24 hr 05/14/23 04:37 05/14/23 10:00 Temperature 98.4 F 97.9 F Pulse Rate 87 63 Respiratory Rate 16 16 Blood Pressure 136/95 H 145/94 H Pulse Oximetry 97 97 Oxygen Delivery Method Room Air Room Air BMI result Body Mass Index 33.5 Const Other: slightly unkept Nutritional Appearance: average body habitus Orientation/consciousness: oriented to person and patient oriented x3 Limitations: no limitations HENMT Head: Yes normal to inspection Ears: external ears normal General nose exam: Normal external nose present Mouth: Normal oral and palatal mucosa present and oropharynx normal Throat: Yes posterior oropharynx normal Eyes General: appearance normal, both eyes and all related structures Neck Neck: Yes normal visual inspection Chest Chest palpation & inspection: normal inspection of the chest Resp Auscultation: clear to auscultation bilaterally Cardio Jugular venous distension: no JVD Rate: regular rate Rhythm: regular rhythm Heart sounds: S1 normal heart sound present and S2 normal heart sound present GI Other: epigastric tenderness Inspection: Yes normal to inspection Auscultation: normal bowel sounds General: Yes no CVA tenderness Back/Spine/Pelvis Back: no CVA tenderness Skin General skin exam: no rashes or lesions noted Neuro General: oriented to person and patient oriented x3 Cranial nerves: Yes CN's II-XII intact bilaterally Motor exam (neuro): 5/5 motor strength present throughout Sensory Exam: No Sensory deficit (Neuro) Extrem General: Yes normal to inspection Psych Appearance: grossly normal Course Reevaluation(s) Reevaluation #1: will admit for IV fluids, pain control Time: 10:26 Medical Decision Making Differential Diagnosis Differential Diagnoses: The differential diagnosis associated with the presentation includes (gastritis, pancreatitis, PUD, cyclical vomiting were all considered) Admission/Observation Consideration of admission/observation: Escalation of care including admission/observation considered (upon arrival patient considered for admission) Consult Healthcare Provider Management of the patient was discussed with: Hospitalist Lab Data 05/14/23 04:57 05/14/23 04:57 Labs: Lab Results 05/14/23 05/14/23 Range/Units 04:57 09:45 WBC 11.6 H (4.8-10.8) X10*3/uL RBC 5.42 (4.60-5.80) X10*6/uL Hgb 14.3 (14.0-18.0) g/dl Hct 43.3 (42.0-52.0) % MCV 79.9 L (80.0-98.0) fL MCH 26.4 L (27.0-33.0) pg MCHC 33.0 (31.0-36.0) g/dl RDW 14.5 (11.0-16.0) % Plt Count 271 D (160-400) X10*3/uL MPV 9.0 L (9.4-12.4) fL Immature Gran % (Auto) 0.3 (0.0-0.4) % Neut % (Auto) 86.0 H (45-73) % Lymph % (Auto) 5.6 L (20-40) % [place] % (Auto) 7.9 (2-11) % Eos % (Auto) 0.1 (0-4) % Baso % (Auto) 0.1 (0-2) % Lymph # (Auto) 0.7 L (1.2-4.9) X10*3/uL [place] # (Auto) 0.9 (0.1-1.2) X10*3/uL Eos # (Auto) 0.0 (0.0-0.4) X10*3/uL Baso # (Auto) 0.0 (0.0-0.2) X10*3/uL Abs Immat Gran (auto) 0.03 (0.00-0.03) X10*3/uL Absolute Neuts (auto) 10.0 H (2.0-8.3) x10*3/uL Absolute Nucleated RBC 0.000 (0.0-0.012) X10*3/uL Nucleated RBC % (auto) 0.0 (0.0-0.2) /100WBC Sodium 137 (135-145) mmol/L Potassium 4.0 (3.3-5.1) mmol/L Chloride 102 (96-108) mmol/L Carbon Dioxide 24 (22-29) mmol/L Anion Gap 15 (12-20) BUN 18 H (9-16) mg/dL Creatinine 0.81 (0.5-1.4) mg/dL Estim Creat Clear Calc 166.9 Estimated GFR > 60 Random Glucose 144 H (60-115) mg/dL Calcium 9.8 D (8.4-10.2) mg/dL Total Bilirubin 1.1 H (0.0-1.0) mg/dL Direct Bilirubin 0.4 (0.0-0.5) mg/dL AST 25 (5-37) U/L ALT 31 (0-40) U/L Alkaline Phosphatase 92 (39-117) U/L Total Protein 7.6 (6.5-8.0) g/dL Albumin 4.2 (3.5-5.0) g/dL Lipase 781 H (8-78) U/L Urine Color Yellow Urine Appearance Clear Urine pH 6.5 (5.0-9.0) Ur Specific Speed 1.020 (1.005-1.025) Urine Protein 30 (1+) H (Neg-Trace) mg/dL Urine Glucose (UA) Negative (Negative) mg/dL Urine Ketones 80 (Negative) mg/dL Urine Blood Negative (Negative) Urine Nitrite Negative (Negative) Ur Leukocyte Esterase Negative (Negative) Urine RBC 0-2 (0-2) /HPF Urine WBC 0-5 (0-5) /HPF Ur Squamous Epith Cells 0-2 (0-2) /HPF Urine Bacteria None Seen (None Seen) Hyaline Casts 0-2 (0-2) /LPF External Record Review External record reviewed: Inpatient record and Prior outpatient radiology Tests considered The following testing was considered but not selected: CT of abdomen considered but patient had a CT with last admission Prescription Management I considered prescription management with: Antibiotic (no evidence of bacterial infection) Chronic Conditions Patient?s care impacted by: Other (alcoholism) Social Determinants Patient?s care significantly limited by Social Determinants of Health including: Alcoholism and drug addiction in family Medications Administered Generic Name Dose Route Start Last Admin Trade Name Freq PRN Reason Stop Dose Admin Sodium Chloride 1,000 mls @ 999 mls/hr 05/14/23 09:30 05/14/23 10:00 Ns IVCONT 05/14/23 11:30 999 mls/hr .Q1H1M NICK Administration Discontinued Medications Generic Name Dose Route Start Last Admin Trade Name Freq PRN Reason Stop Dose Admin Morphine Sulfate 4 mg 05/14/23 09:20 05/14/23 10:00 Morphine Sulfate 4 Mg/Ml Cartridge IVPUSH 05/14/23 09:21 4 mg ONCE ONE Administration Protocol Ondansetron HCl 4 mg 05/14/23 09:20 05/14/23 10:00 Ondansetron Hcl 4 Mg/2 Ml Vial IVPUSH 05/14/23 09:21 4 mg ONCE ONE Administration Pantoprazole Sodium 40 mg 05/14/23 09:20 05/14/23 10:00 Pantoprazole Sodium 40 Mg/10 Ml Vial IVPUSH 05/14/23 09:21 40 mg ONCE ONE Administration Discharge Plan Discharge Clinical Impression: Alcohol abuse, Pancreatitis Patient Disposition: Admitted As Inpatient
--- NOTE | 2023-05-14 11:15 | PC.NURSE ---
patient a&ox3, ivf continue to run per orders, pt pain lessoned to 1/10, call jenkins within reach, will continue to monitor
--- NOTE | 2023-05-14 12:35 | PHA.MEDREC ---
Pharmacy Consult ? Medication Reconciliation Pharmacy has completed the medication reconciliation with pt, pt said he only takes OTC items, added the ones he named but was not able to tell me what type of antacid.
[2023-05-14] MEDS: Lactated Ringers 1,000 ML 100 ML IVCONT (13:58)
--- NOTE | 2023-05-14 15:23 | PC.NURSE ---
patient currently sleeping, ivf running per order, will continue to monitor
--- NOTE | 2023-05-14 16:35 | PM.IMHP ---
History of Present Illness Date of Service: 05/14/23 Attending physician on admission: Regina Joshua Chief Complaint: alcohol withdrawal 28yo male with history of pancreatitis,alcohol use admitted in February. in : CT of abdomen at that time showed pancreatic inflammation with fluid around the pancrease. Patient is having abdominal pain left flank area, nonradiating, persistent, nausea vomiting for 1 day duration. Denies any new complaint of chest pain or shortness of breath or fever or chills or any cough Denies any weakness or numbness. Patient continues to drink alcohol(says drink 6 drink rum /day),denies history of withdrawal. labs reviewed: wbc:11.6 bmp: bun /cr: 18/0.8 total bilirubin 1.1,otherwise lft's normal lipase 781 Review of Systems Review of Systems: as above, Yes all other systems are reviewed and are negative [facility] Medical History Asthma Alcohol abuse Surgical History No pertinent past surgical history Social History Household Members: Family Housing: House Do you presently have visiting nurse or other home services: No Alcohol intake: current Alcohol intake frequency: 0-2 drinks per day Alcohol type: hard liquor Comment: refusing alarms Patient Tobacco Use Status: Current someday Tobacco user Tobacco use type: Cigarette Smoked in Last 30 Days: No e-Cigarette/Vaping Use: Never Used Second Hand Smoke Exposure: No Substance Use Type: Marijuana Advance Directives: No Advance Directives Information Provided: No service: No Current occupational status: employed Meds Allergies Allergy/AdvReac Type Severity Reaction Status Date / Time egg Allergy Unknown Verified 05/14/23 04:42 Active Medications: Current Medications Albuterol Sulfate (Albuterol Sulfate 90 Mcg 8 Gm Inhaler) 2 puff INHALE ONCE PRN PRN Reason: Sob Hydromorphone HCl (Hydromorphone Hcl 0.5 Mg/0.5 Ml Syringe) 0.5 mg IVPUSH Q4H PRN; Protocol PRN Reason: Pain, Mild (Pain Scale 1-3) Lactated Ringer's (Lr) 1,000 mls @ 100 mls/hr IVCONT .Q10H NICK Last Admin: 05/14/23 13:58 Dose: 100 mls/hr Ondansetron HCl (Ondansetron Hcl 4 Mg/2 Ml Vial) 4 mg IVPUSH Q4H PRN PRN Reason: Nausea and Vomiting Sodium Chloride (0.9 % Sodium Chloride Flush 3 Ml Syringe) 3 ml IVFLUSH QSHIFT NICK Last Admin: 05/14/23 15:22 Dose: Not Given Home Medications Medication Instructions Recorded Confirmed Last Taken Type ibuprofen 200 mg tablet (Advil) 400 mg PO Q8H PRN Pain 02/24/22 05/14/23 1 Week Ago History ~02/17/22 sennosides 25 mg tablet 25 mg PO DAILY PRN Constipation 02/24/22 05/14/23 1 Week Ago History ~02/17/22 Physical Exam Vital Signs and Narrative: Vital Signs: Last Vital Signs Temp 97.9 F 05/14/23 10:00 Pulse 63 05/14/23 10:00 Resp 16 05/14/23 10:00 BP 145/94 H 05/14/23 10:00 Pulse Ox 97 05/14/23 10:00 O2 Del Method Room Air 05/14/23 10:00 BMI result Body Mass Index 33.5 Appearance: Alert.? Oriented X3.? . cvs: rrr, [id number] , no murmur res: clear to auscultation ,no rhonchii or wheezing abd: no rebound or guarding ,epigastric/left upper flank area pain, bs present. ext pulses present , no cyanosis . neuro: axo3 , nonfocal. Results Labs 05/14/23 04:57 05/14/23 04:57 Labs: Laboratory Results - last 24 hr 05/14/23 05/14/23 04:57 09:45 MCV 79.9 L MCH 26.4 L MCHC 33.0 RDW 14.5 Plt Count 271 D MPV 9.0 L Immature Gran % (Auto) 0.3 Neut % (Auto) 86.0 H Lymph % (Auto) 5.6 L [place] % (Auto) 7.9 Eos % (Auto) 0.1 Baso % (Auto) 0.1 Lymph # (Auto) 0.7 L [place] # (Auto) 0.9 Eos # (Auto) 0.0 Baso # (Auto) 0.0 Abs Immat Gran (auto) 0.03 Absolute Neuts (auto) 10.0 H Absolute Nucleated RBC 0.000 Nucleated RBC % (auto) 0.0 Anion Gap 15 Estim Creat Clear Calc 166.9 Estimated GFR > 60 Random Glucose 144 H Calcium 9.8 D Total Bilirubin 1.1 H Direct Bilirubin 0.4 AST 25 ALT 31 Alkaline Phosphatase 92 Total Protein 7.6 Albumin 4.2 Lipase 781 H Urine Color Yellow Urine Appearance Clear Urine pH 6.5 Ur Specific [place] 1.020 Urine Protein 30 (1+) H Urine Glucose (UA) Negative Urine Ketones 80 Urine Blood Negative Urine Nitrite Negative Ur Leukocyte Esterase Negative Urine RBC 0-2 Urine WBC 0-5 Ur Squamous Epith Cells 0-2 Urine Bacteria None Seen Hyaline Casts 0-2 Assessment and Plan (1) Pancreatitis: Status: Acute (2) Alcohol abuse: Status: Acute Plan 26-year-old male with past medical history of alcohol abuse presents to the hospital with complaints of abdominal pain found to have acute pancreatitis ? acute pancreatitis able to tolerate clear with pain - likely secondary to alcohol abuse elevated lipase continue with IV fluids,ppi, pain control,zofran ,ppi,npo. ? nausea-? secondary to above. continue with antiemetics, IV fluids alcohol abuse with potential for withdrawal-? at this time patient is not in withdrawal monitor withdrawal symptoms intiated thiamine and folic acid will add po phenobarbital taper ? asthma-?not in exacerbation. overweight:encouraged to lose weight ?DVT prophylaxis:? Lovenox Patient will benefit from 48-72 hour hospital admission stay for:acute pancreatitis, persistent nausea vomiting, unable to tolerate p.o. diet-need IV hydration, IV pain medication, impending alcohol withdrawal-for CIWA monitoring and phenobarb protocol. Above management discussed with the patient in detail length he understand in agreement with the above plan, time spent 70 minute ,patient full code. Quality Stroke Does the patient have a stroke diagnosis?: No VTE Prior VTE?: No VTE Risk Level:: Medical - moderate - high VTE Device Contraindication: N/A - Device Ordered VTE Drug Contraindication: N/A - Med Ordered
[2023-05-14 16:53] VITALS: BP 144/82; PULSE 65; RESP 22; TEMP 36.6; O2SAT 98
--- NOTE | 2023-05-14 18:01 | PC.NURSE ---
pt a&ox3, youth probation officer nsr 70s, vitals have been stable, pt states he has 3/10 abd pain and declined pain medication, pt will make his needs known if/when he needs pain medication. call jenkins within reach, will continue to monitor
[2023-05-14] MEDS: Thiamine HCL 100 MG in 0.9 % Sodium Chloride 100 ML 202 MG IV (18:46)
--- NOTE | 2023-05-14 18:50 | PC.NURSE ---
ivf paused as the added medications are not compatible with ivf will restart after medications have been administered. pt currently sleeping. financial underwriter nsr 70s
--- NOTE | 2023-05-14 19:33 | PC.NURSE ---
Pt resting bed quietly, no signs of distress. Folic Acid just given to this RN b pharmacy. Plan of care ongoing.
[2023-05-14] MEDS: Folic Acid 1 MG in 0.9 % Sodium Chloride 50 ML 100.4 MG IV (19:42)
[2023-05-14] MEDS: Enoxaparin Sodium 40 MG/0.4 ML SYRINGE SUBCUT (19:42)
--- NOTE | 2023-05-14 19:52 | PC.NURSE ---
Pt medicated per apr. Pt ca&ox4, no signs of distress. Plan of care ongoing.
--- NOTE | 2023-05-14 21:11 | MHC.CM.PN ---
CM met with admitted patient with bed assignment pending. A&Ox4. 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 No PCP. Needs referrals at discharge. Declines HCP at this time. No DME/servcies. THRIVE screening reported positive. Given 413 pamphlet. Pronouns he/him. D/C plan: Home without services. Pt to arrange transport home.
[2023-05-14 21:23] VITALS: BMI 34.3
[2023-05-14 21:52] VITALS: BP 135/83; PULSE 90; RESP 18; TEMP 37; O2SAT 97
[2023-05-15] MEDS: Lactated Ringers 1,000 ML 125 ML IVCONT ×2 (00:30→08:49)
[2023-05-15 04:00] VITALS: BP 131/77; PULSE 77; RESP 18; TEMP 36.9; O2SAT 96
[2023-05-15] MEDS: Pantoprazole Sodium 40 MG/10 ML VIAL IVPUSH (06:26)
[2023-05-15] MEDS: Acetaminophen 325 MG TABLET 975 MG PO (06:40)
[2023-05-15 07:53] VITALS: BP 117/69; PULSE 84; RESP 18; TEMP 36; O2SAT 95
[2023-05-15] MEDS: Thiamine HCL 100 MG in 0.9 % Sodium Chloride 100 ML IV (08:48)
[2023-05-15] MEDS: PHENobarbitaL 15 MG TABLET 45 MG PO (08:49)
[2023-05-15] MEDS: Folic Acid 1 MG in 0.9 % Sodium Chloride 50 ML 100.4 MG IV (09:40)
--- NOTE | 2023-05-15 10:58 | MHC.CM.PN ---
Per MD rounds patient is medically cleared for dc home self care. Patient reports a friend will provide transportation.
--- NOTE | 2023-05-15 11:51 | P.DS_ITS ---
DS: Providers Provider Date of Service: 05/15/23 Date of admission: 05/14/23 12:05 Date of discharge: 05/15/23 Primary care physician: None Physician Consults: 05/14/23 21:14 Addiction Medicine Routine Consulting Provider: Addiction Covering Reason for consultation: Alcohol use disorder Attending physician on discharge: Regina Joshua Discharging clinician: Regina Joshua DS: Diagnosis Discharge Diagnosis (1) Pancreatitis: Status: Acute (2) Alcohol abuse: Status: Acute DS: Summary Hospital Course Hospital Course: 26-year-old male with past medical history of asthma and alcohol abuse presents to the hospital with complaints of epigastric abdominal pain radiating to the back. Patient's symptoms started the day prior, patient reports nausea, no vomiting, no diarrhea, no urinary symptoms and no lower extremity edema. Patient is a daily drinker, last drink the night prior, has no withdrawal symptoms at this time no history of withdrawals. On arrival to the ED patient hemodynamically stable with no significant abnormal vitals except for heart rate in the 120s and has now normalized Labs are significant for WBC count of 12.2, lactic acid of 2.3 improved with IV fluids, lipase of 465, Abdomen pelvic CT shows pancreatitis with normal liver, no focal hepatic lesion or biliary ductal dilatation, gallbladder is unremarkable patient being admitted further management Hospital course: Patient was admitted for acute pancreatitis possibly secondary to alcohol use: Found to have elevated lipase, also mild elevation of WBC: Patient was started on bowel rest, IV hydration , IV pain medications and antiemetics: Patient seems to be improved significantly with supportive care: Tolerating diet, asymptomatic. Mild leukocytosis: Possible reactive pancreatitis, patient is asymptomatic. Monitor CBC outpatient plan: Patient was strongly advised to abstain from alcohol to avoid further episodes pancreatitis. Monitor CBC outpatient Above management discussed with the patient detail and she understand in agreement with the plan, time spent 36 minute. Time Attestation Total time managing care of this patient today: 36 mintues. Discharge Coordination Time (in mins): 36 min Quality: Safe Use of Opioids Does Pt have an Active Cancer Diagnosis on the Problem List?: No Quality: Stroke Does the patient have a stroke diagnosis?: No Physical Exam Vital Signs: Vital Signs: Last Vital Signs Temp 96.8 F 05/15/23 07:53 Pulse 84 05/15/23 07:53 Resp 18 05/15/23 07:53 BP 117/69 05/15/23 07:53 Pulse Ox 95 05/15/23 07:53 O2 Del Method Room Air 05/15/23 07:53 BMI result Body Mass Index 34.3 Appearance: Alert.? Oriented X3.? . cvs: rrr, [id number] , no murmur res: clear to auscultation ,no rhonchii or wheezing abd: no rebound or guarding ,nt , bs present. ext pulses present , no cyanosis . neuro: axo3 , nonfocal. Discharge Plan Discharge Anticipated Discharge Date/Time: 05/15/23 11:46 Patient Disposition: Home, Self-Care Discharge Diagnosis: Acute pancreatitis related to alcohol . Referrals: Physician,None [Primary Care Provider] - 1 Week Discharge Medications: New Proair Digihaler 90 mcg/actuation aero powdr breath act w/sensor 1 inh inhalation Q4-6H PRN (Reason: shortness of breath) Qty: 1 0RF albuterol sulfate 90 mcg/actuation HFA aerosol inhaler 2 puff inhalation Q6H PRN (Reason: shortness of breath or wheezing) Qty: 6.7 0RF Continued ibuprofen [Advil] 200 mg Tablet 400 mg PO Q8H PRN (Reason: Pain) sennosides 25 mg Tablet 25 mg PO DAILY PRN (Reason: Constipation) Discharge Orders: Discharge Order (Routine); Ordered 05/15/23 Ordered By: Regina Joshua Diet: Advance to usual diet Activity on Discharge: As tolerated Stand Alone Forms: Patient Portal Discharge page Print Language: Latvian Care Plan Goals: Patient was admitted for acute pancreatitis possibly secondary to alcohol use: Found to have elevated lipase, also mild elevation of WBC: Patient was started on bowel rest, IV hydration , IV pain medications and antiemetics: Patient seems to be improved significantly with supportive care: Tolerating diet, asymptomatic. Mild leukocytosis: Possible reactive pancreatitis, patient is asymptomatic. Monitor CBC outpatient Health Concerns: As above. Plan of Treatment: Monitor CBC outpatient Assessment: As above. Patient Instructions: Pancreatitis (DC) Discharge Date/Time: 05/15/23 16:13
--- NOTE | 2023-05-15 13:44 | MHC.RECOVRN ---
Met with pt in - after consult placed to Addiction Medicine for Alcohol use disorder.? Chart review completed and received report from floor nurse Davida. Pt had presented to the ED via EMS for vomiting, abdominal pain and constipation. Abdominal pain was generalized.? Pt was admitted to the floor acute pancreatitis, persistent nausea vomiting, unable to tolerate p.o. diet-need IV hydration, IV pain medication, and impending alcohol withdrawal-for CIWA monitoring and phenobarbital protocol . Upon assessment pt is lying in bed awake and alert.? He is awaiting his lunch.? If he is able to tolerate it he will be D/C due to improvement in condition.? ? He denies any W/D sx and none observed.??Last CIWA per nurse was a 0. Pt had reported to MD that he drinks 6 rum drinks/day.? When I asked him about his alcohol use he wanted to focus more on the reasons that he drinks than the drinking itself.? He identified anxiety and insomnia as these reasons.? He was able to identify 2 major medical and one major relationship issues he has had in the last 3 years r/t alcohol use.? He described his drinking (as of late) not as a result of craving the alcohol as much as wanting to treat the anxiety and insomnia.? Pt was open minded and considering the use of supports ([facility], MAT, therapy, psych) for his mental health and alcohol use. ?? Due to the possibility of quick D/C T/W supplied pt with resources including area resources for the above mentioned services as well as information on ALKA and harm reduction for alcohol consumption.? Pt accepted information.? Education provided on effects of alcohol on sleep and methods to improve sleep.? T/W provided report to ACS team and pt?s nurse Davida.? I informed May that if pt did not get D/C I would F/U with him tomorrow for further education. T/W and ACS team available as needed.
== END 2023-05-15 16:13 | disposition home or self-care (01) | DRG 282 ==
LOC: HO.ED 10:30 → HO.EDOVER 12:21 → HO.S3 19:13
PROVIDERS: Admitting Provider Internal Medicine; Emergency Provider Emergency Medicine; Visit Provider Internal Medicine
DX: K85.20 Alcohol induced acute pancreatitis without necrosis or infection (principal); E66.3 Overweight; F10.10 Alcohol abuse, uncomplicated; J45.909 Unspecified asthma, uncomplicated; Z68.34 Body mass index [BMI] 34.0-34.9, adult; Z71.3 Dietary counseling and surveillance; Z79.899 Other long term (current) drug therapy
CPT/HCPCS: 36415; 80048; 80076; 81001; 83690; 85025; 99285; C9113; J1650; J2270; J2405; J3411; J7120

== ENCOUNTER → 2023-05-14 12:05 | Outpatient (BNV) | payer OTHER, SELFPAY | PROVIDERS: Admitting Provider Internal Medicine; Emergency Provider Emergency Medicine; Visit Provider Internal Medicine | DX: K85.90 Acute pancreatitis without necrosis or infection, unspecified (principal); F10.10 Alcohol abuse, uncomplicated | CPT/HCPCS: 99222; 99239 ==

== ENCOUNTER 2023-12-19 19:38 | Emergency (ER) | payer OTHER, SELFPAY ==
--- NOTE | 2023-12-19 19:40 | ECG_ITS ---
Test Reason : CHEST PAIN Blood Pressure : / mmHG Vent. Rate : 083 BPM Atrial Rate : 083 BPM P-R Int : 138 ms QRS Dur : 096 ms QT Int : 328 ms P-R-T Axes : 040 029 -43 degrees QTc Int : 385 ms Normal sinus rhythm T wave abnormality, consider inferior ischemia T wave abnormality, consider anterolateral ischemia Abnormal ECG When compared to the previous EKG of No significant changes seen Referred By: Generic ED Physician Electronically Signed By:DAYAMI ROSALES MD
[2023-12-19 20:18] VITALS: BP 136/73; PULSE 93; RESP 16; TEMP 37; O2SAT 98; BMI 34.2
--- NOTE | 2023-12-19 20:18 | ED_ITS ---
HPI - General Adult General Chief complaint: Chest Pain Stated complaint: chest pain, nausea, loss appetite Time Seen by Provider: 12/19/23 22:47 Source: patient Mode of arrival: ambulatory Limitations: no limitations History of Present Illness ED Provider: Dr. Madrigal HPI narrative: Patient is a 28 yo male with history of alcohol abuse, alcohol gastritis, and alcohol pancreatitis. Patient states that he had not had any alcohol until recently and now with reflux and abdominal pain. Onset (ago): day(s) Related Data Home Medications ?Medication ?Instructions ?Recorded ?Confirmed ibuprofen 200 mg tablet (Advil) 400 mg PO Q8H PRN Pain 02/24/22 05/14/23 sennosides 25 mg tablet 25 mg PO DAILY PRN Constipation 02/24/22 05/14/23 Previous Rx's ?Medication ?Instructions ?Recorded albuterol sulfate 90 mcg/actuation 1 inh inhalation Q4-6H PRN 05/15/23 breath activated powder shortness of breath #1 ea inhaler,sensor (Proair Digihaler) albuterol sulfate 90 mcg/actuation 2 puff inhalation Q6H PRN 05/17/23 aerosol inhaler shortness of breath or wheezing #6.7 grams pantoprazole 40 mg tablet,delayed 40 mg PO DAILY #20 tabs 12/19/23 release (Protonix) Allergies Allergy/AdvReac Type Severity Reaction Status Date / Time egg Allergy Unknown Verified 12/19/23 20:19 Review of Systems 2 Review of Systems: Yes all other systems are reviewed and are negative Neurologic: Denies Sensory deficit (Neuro) [facility] Past Medical History Medical History Asthma Alcohol abuse Surgical History No pertinent past surgical history Social History Social History Household Members: None Housing: Apartment Do you presently have visiting nurse or other home services: No Unable to assess alcohol history related to: Unknown Alcohol intake: current Alcohol intake frequency: 0-2 drinks per day Alcohol type: hard liquor Comment: refusing alarms Patient Tobacco Use Status: Never used Tobacco Tobacco use type: Cigarette Smoked in Last 30 Days: No e-Cigarette/Vaping Use: Never Used Second Hand Smoke Exposure: No Use of substances other than those prescribed or required for medical reasons: Unknown Substance Use Type: Marijuana Advance Directives: No Advance Directives Information Provided: No Do you have a plan to hurt others: No Plan service: No Current occupational status: employed Physical Exam ED Vital Signs: Vital Signs - 24 hr 12/19/23 20:18 Temperature 98.6 F Pulse Rate 93 Respiratory Rate 16 Blood Pressure 136/73 Pulse Oximetry 98 Oxygen Delivery Method Room Air BMI result Body Mass Index 34.2 Const General: healthy appearing Nutritional Appearance: average body habitus Orientation/consciousness: oriented to person and patient oriented x3 Limitations: no limitations HENMT Head: Yes normal to inspection Ears: external ears normal General nose exam: Normal external nose present Mouth: Normal oral and palatal mucosa present and oropharynx normal Throat: Yes posterior oropharynx normal Eyes General: appearance normal, both eyes and all related structures Neck Neck: Yes normal visual inspection Chest Chest palpation & inspection: normal inspection of the chest Resp Auscultation: clear to auscultation bilaterally Cardio Jugular venous distension: no JVD Rate: regular rate Rhythm: regular rhythm Heart sounds: S1 normal heart sound present and S2 normal heart sound present GI Inspection: Yes normal to inspection Palpation (GI): Soft to palpation, nontender and No hepatosplenomegaly present Auscultation: normal bowel sounds General: Yes no CVA tenderness Back/Spine/Pelvis Back: no CVA tenderness Skin General skin exam: no rashes or lesions noted Neuro General: oriented to person and patient oriented x3 Cranial nerves: Yes CN's II-XII intact bilaterally Motor exam (neuro): 5/5 motor strength present throughout Sensory Exam: No Sensory deficit (Neuro) Extrem General: Yes normal to inspection Psych Appearance: grossly normal Course Course Course Narrative: This is an RME done by GIRISH Burrell: Additional HPI, ROS, PE not included below will be deferred to primary provider. 28-year-old male history of alcohol abuse, pancreatitis presenting with epigastric/substernal chest discomfort ongoing since this morning when he woke up. Reports he has been cutting down his drinking. Last drink friday. No SOB, fevers, chills, nausea, vomiting. Reevaluation(s) Reevaluation #1: patient with a slight elevation of lipase, will start protonix and dc home with mild pancreatitis from recent alcohol. Time: 22:59 Medical Decision Making Differential Diagnosis Differential Diagnoses: The differential diagnosis associated with the presentation includes (pancreatitis, gastritis, hepatitis all secondary to alcohol) Admission/Observation Consideration of admission/observation: Escalation of care including admission/observation considered (upon arrival patient was considered for admission) Lab Data 12/19/23 20:38 12/19/23 20:38 Labs: Lab Results 12/19/23 Range/Units 20:38 WBC 8.1 (4.8-10.8) X10*3/uL RBC 4.67 (4.60-5.80) X10*6/uL Hgb 12.4 L (14.0-18.0) g/dl Hct 38.2 L (42.0-52.0) % MCV 81.8 (80.0-98.0) fL MCH 26.6 L (27.0-33.0) pg MCHC 32.5 (31.0-36.0) g/dl RDW 15.9 (11.0-16.0) % Plt Count 257 (160-400) X10*3/uL MPV 8.6 L (9.4-12.4) fL Immature Gran % (Auto) 0.2 (0.0-0.4) % Neut % (Auto) 72.7 (45-73) % Lymph % (Auto) 18.0 L (20-40) % [place] % (Auto) 7.3 (2-11) % Eos % (Auto) 1.4 (0-4) % Baso % (Auto) 0.4 (0-2) % Lymph # (Auto) 1.5 (1.2-4.9) X10*3/uL [place] # (Auto) 0.6 (0.1-1.2) X10*3/uL Eos # (Auto) 0.1 (0.0-0.4) X10*3/uL Baso # (Auto) 0.0 (0.0-0.2) X10*3/uL Abs Immat Gran (auto) 0.02 (0.00-0.03) X10*3/uL Absolute Neuts (auto) 5.9 (2.0-8.3) x10*3/uL Absolute Nucleated RBC 0.000 (0.0-0.012) X10*3/uL Nucleated RBC % (auto) 0.0 (0.0-0.2) /100WBC Sodium 139 (135-145) mmol/L Potassium 4.1 (3.3-5.1) mmol/L Chloride 103 (96-108) mmol/L Carbon Dioxide 26 (22-29) mmol/L Anion Gap 14 (12-20) BUN 14 (9-16) mg/dL Creatinine 0.85 (0.5-1.4) mg/dL Estim Creat Clear Calc 151.1 Estimated GFR > 60 Random Glucose 99 (60-115) mg/dL Calcium 9.3 (8.4-10.2) mg/dL Magnesium 2.0 (1.6-2.6) mg/dL Total Bilirubin 0.4 (0.0-1.0) mg/dL AST 26 (5-37) U/L ALT 29 (0-40) U/L Alkaline Phosphatase 88 (39-117) U/L Troponin I High Sens < 2.7 (<3.5-35.0) ng/L Total Protein 7.5 (6.5-8.0) g/dL Albumin 4.2 (3.5-5.0) g/dL Lipase 169 H (8-78) U/L External Record Review External record reviewed: Outpatient record Tests considered The following testing was considered but not selected: Abd/pel CT: patient with prior scan, and mild illness Prescription Management I considered prescription management with: Antibiotic (no evidence of bacterial infection) Social Determinants Patient?s care significantly limited by Social Determinants of Health including: Alcoholism and drug addiction in family Discharge Plan Discharge Clinical Impression: Alcohol abuse, Pancreatitis, Gastritis Patient Disposition: Home, Self-Care Instructions: Gastritis (ED), Pancreatitis (ED), Abuse of Alcohol (ED) Prescriptions: New pantoprazole [Protonix] 40 mg tablet,delayed release (DR/EC) 40 mg PO DAILY Qty: 20 0RF No Action ibuprofen [Advil] 200 mg Tablet 400 mg PO Q8H PRN (Reason: Pain) sennosides 25 mg Tablet 25 mg PO DAILY PRN (Reason: Constipation) Proair Digihaler 90 mcg/actuation aero powdr breath act w/sensor 1 inh inhalation Q4-6H PRN (Reason: shortness of breath) Qty: 1 0RF albuterol sulfate 90 mcg/actuation HFA aerosol inhaler 2 puff inhalation Q6H PRN (Reason: shortness of breath or wheezing) Qty: 6.7 0RF Referrals: Physician,None [Primary Care Provider] - 1 week Print Language: Bermudian
--- NOTE | 2023-12-19 20:19 | MHC.EDTECH ---
EKG performed at [address] Cagle. Will not cross over in system
[2023-12-19 20:43] LABS: MANUAL DIFF FLAG NO
[2023-12-19 20:44] LABS: Basophils Percent Auto 0.4 % (0-2); Eosinophils Absolute Auto 0.1 X10*3/uL (0.0-0.4); Eosinophils Percent Auto 1.4 % (0-4); Hematocrit 38.2 % (42.0-52.0); Hemoglobin 12.4 g/dl (14.0-18.0); Imm Gran Abs Auto 0.02 X10*3/uL (0.00-0.03); Imm Gran Pct Auto 0.2 % (0.0-0.4); Lymphocytes Absolute Auto 1.5 X10*3/uL (1.2-4.9); Mean Corpuscular HGB Conc 32.5 g/dl (31.0-36.0); Mean Corpuscular Hemoglobin 26.6 pg (27.0-33.0); Mean Corpuscular Volume 81.8 fL (80.0-98.0); Mean Platelet Volume 8.6 fL (9.4-12.4); Monocytes Absolute Auto 0.6 X10*3/uL (0.1-1.2); Monocytes Percent Auto 7.3 % (2-11); Neutrophils Absolute Auto 5.9 x10*3/uL (2.0-8.3); Neutrophils Percent Auto 72.7 % (45-73); Platelet Count 257 X10*3/uL (160-400); Red Blood Count 4.67 X10*6/uL (4.60-5.80); Red Cell Distribution Width 15.9 % (11.0-16.0); White Blood Count 8.1 X10*3/uL (4.8-10.8)
[2023-12-19 21:01] LABS: Alanine Aminotransferase 29 U/L (0-40); Albumin Level 4.2 g/dL (3.5-5.0); Alkaline Phosphatase 88 U/L (39-117); Anion Gap 14 (12-20); Aspartate Amino Transferase 26 U/L (5-37); Bilirubin Total 0.4 mg/dL (0.0-1.0); Blood Urea Nitrogen 14 mg/dL (9-16); Calcium 9.3 mg/dL (8.4-10.2); Carbon Dioxide 26 mmol/L (22-29); Chloride 103 mmol/L (96-108); Creatinine Clr Calc Pharmacy 151.1; Estimated Glomerular Filt Rate > 60; Glucose Random 99 mg/dL (60-115); Lipase 169 U/L (8-78); Potassium 4.1 mmol/L (3.3-5.1); Sodium 139 mmol/L (135-145); Total Protein 7.5 g/dL (6.5-8.0)
[2023-12-19 21:13] LABS: Troponin-I High Sensitivity < 2.7 ng/L (<3.5-35.0)
--- NOTE | 2023-12-19 22:03 | PC.NURSE ---
pt reports midsternal/epigastric pain, nonradiating. pain began this morning and has not gone away. associated decreased po intake/appetite. reports nausea no vomiting, only able to eat 1 granola bar today. unsure if pain worse w/ eating. pt waiting to be seen by ED provider. given urine cup to obtain sample. call jenkins within reach.
[2023-12-19] MEDS: Ondansetron ODT 4 MG TAB.RAPDIS TRANSLINGU (23:09)
[2023-12-19] MEDS: Famotidine 20 MG TABLET PO (23:09)
[2023-12-19 23:11] VITALS: BP 128/81; PULSE 70; RESP 16; TEMP 36.9; O2SAT 98
[2023-12-19 23:13] VITALS: BP 128/81; PULSE 70; RESP 16; TEMP 36.9; O2SAT 98
== END 2023-12-19 23:18 | disposition home or self-care (01) ==
PROVIDERS: Physician Assistant; Emergency Provider Emergency Medicine
DX: F10.10 Alcohol abuse, uncomplicated (principal); Y90.9 Presence of alcohol in blood, level not specified; K85.90 Acute pancreatitis without necrosis or infection, unspecified; K29.70 Gastritis, unspecified, without bleeding; K21.9 Gastro-esophageal reflux disease without esophagitis; J45.909 Unspecified asthma, uncomplicated; Z79.899 Other long term (current) drug therapy
CPT/HCPCS: 36415; 80053; 83690; 83735; 84484; 85025; 93005; 99283; 99284

== ENCOUNTER → 2023-12-19 19:40 | Outpatient (BNV) | payer OTHER, SELFPAY | PROVIDERS: Emergency Provider Emergency Medicine; Visit Provider Internal Medicine Cardiovascular Disease | DX: R94.31 Abnormal electrocardiogram [ECG] [EKG] (principal) | CPT/HCPCS: 93010 ==

== ENCOUNTER 2024-12-23 21:58 | Emergency (ER) | payer OTHER, SELFPAY ==
--- NOTE | ~2024-12-23 | XR_ITS ---
CLINICAL HISTORY: cough 1 view chest x-ray Comparison: CR/SR - XR ABDOMEN 1 VIEW (KUB) - 02/25/22 11:[address]/SR - CT ABDOMEN PELVIS WITH IV CONTRAST - 02/23/22 21:12 EST Findings: There is some increased opacity at the left lung base medially. No effusion or pneumothorax. Heart size is upper limits of normal. Large hiatal hernia present. No acute fracture. IMPRESSION: 1. Medial left lung base opacity which may be infection or atelectasis. 2. Large hiatal hernia, Unchanged from prior. This document has been electronically signed by: Augie Guo MD on 12/23/2024 22:46:39
[2024-12-23 22:06] VITALS: BP 136/77; PULSE 92; RESP 20; TEMP 36.8; O2SAT 94; BMI 36.0
[2024-12-23 22:46] LABS: COVID-19 Test Positive (Negative); IDNOW Serial# 55D5AD1C
[2024-12-23 22:47] LABS: IDNOW Serial# 08D9AD1C; IDNOW Serial# 58CA691E; Influenza B2 Negative (Negative); Strep A Nucleic Acid Negative (Negative)
--- NOTE | 2024-12-24 00:47 | ED.GENADULT ---
HPI - General Adult General Chief complaint: Upper Respiratory Symptoms Stated complaint: Nausea Vomiting Diarrhea Time Seen by Provider: 12/24/24 00:29 Source: patient Mode of arrival: ambulatory Limitations: no limitations History of Present Illness ED Provider: Dr. Patience Maher HPI narrative: Patient comes to the emergency room complaining of sore throat, cough, congestion and 1 episode of vomiting. Patient states that he has been using his asthma inhaler a bit more often than usual, states that he usually gets occasional exacerbations when the weather gets cold. At this time, patient denies any shortness of breath. Related Data Home Medications ?Medication ?Instructions ?Recorded ?Confirmed ibuprofen 200 mg tablet (Advil) 400 mg PO Q8H PRN Pain 02/24/22 05/14/23 sennosides 25 mg tablet 25 mg PO DAILY PRN Constipation 02/24/22 05/14/23 Previous Rx's ?Medication ?Instructions ?Recorded albuterol sulfate 90 mcg/actuation 1 inh inhalation Q4-6H PRN 05/15/23 breath activated powder shortness of breath #1 ea inhaler,sensor (Proair Digihaler) albuterol sulfate 90 mcg/actuation 2 puff inhalation Q6H PRN 05/17/23 aerosol inhaler shortness of breath or wheezing #6.7 grams pantoprazole 40 mg tablet,delayed 40 mg PO DAILY #20 tabs 12/19/23 release (Protonix) Allergies Allergy/AdvReac Type Severity Reaction Status Date / Time egg Allergy Unknown Verified 12/23/24 22:10 Review of Systems Review of Systems: Constitutional : No Weight loss, No Fever, No Chills, No Night Sweats, No Fatigue, No Malaise ENT/Mouth : No Hearing loss, No Ear Pain, Complaining of nasal congestion, no hoarseness, complaining of sore throat, no rhinorrheag Eyes: No Eye Pain, No Swelling, No Redness, No Foreign Body, No Discharge, No Vision Changes Cardiovascular : No Chest Pain, No SOB, No Dyspnea on Exertion, No Orthopnea, No Edema, No Palpitations Respiratory : No Cough, No Sputum, No Wheezing, No Smoke Exposure, No Dyspnea Gastrointestinal : No Nausea, 1 episode of Vomiting, No Diarrhea, No Constipation, No abdominal Pain, No Hematochezia, No Melena Genitourinary : no irregular bleeding, No Dysuria, No Urinary Frequency, No Hematuria, No Urinary Incontinence, No Urgency, No Flank Pain, No Urinary Flow Changes, No Hesitancy Musculoskeletal : No joint pain, No Myalgias, No Joint Swelling Skin : No Skin Lesions, No rash Neuro : No Weakness, No Numbness, No Paresthesias, No Loss of Consciousness, No Dizziness, No Headache Psych : No Anxiety/Panic, No Depression, No SI/HI/AH/VH, No Social Issues, Heme/Lymph: No Bruising, No Bleeding,No Lymphadenopathy Endocrine : No Polyuria, No Polydipsia, No Temperature Intolerance [facility] Past Medical History Medical History Asthma Alcohol abuse Surgical History No pertinent past surgical history Social History Social History Household Members: None Housing: Apartment Do you presently have visiting nurse or other home services: No Alcohol intake: current Alcohol intake frequency: 0-2 drinks per day Alcohol type: hard liquor Comment: refusing alarms Patient Tobacco Use Status: Never used Tobacco Tobacco use type: Cigarette e-Cigarette/Vaping Use: Never Used Second Hand Smoke Exposure: No Substance Use Type: Marijuana Advance Directives: No Advance Directives Information Provided: Yes service: No Current occupational status: employed Physical Exam ED Exam Exam: Appearance: Alert. Oriented X3. No acute distress. Eyes: Pupils equal, round and reactive to light. ENT: erythematous oropharynx, uvula midline, swollen bilateral tonsils, no exudates, no obvious abscesses. No signs of obstruction calm no stridor Neck: Normal inspection. Neck supple. No lymph nodes noted. No crepitus CVS: Normal heart rate and rhythm. Pulses normal. Normal S1 and S2 Respiratory: No respiratory distress. Breath sounds normal. No Wheezing. No rales Abdomen: Soft and nontender. No rigidity. No distention. Skin: Skin warm and dry. Normal skin color. Normal skin turgor. Extremities: No lower extremity edema. No Lacerations. No Rash Neuro: Oriented X 3. No motor deficit. No sensory deficit. Moving all extremities. No slurred speech. CN 2 through 12 grossly intact Psych: calm, cooperative, normal affect Vital Signs: Vital Signs - 24 hr 12/23/24 22:06 Temperature 98.3 F Pulse Rate 92 Respiratory Rate 20 Blood Pressure 136/77 Pulse Oximetry 94 Oxygen Delivery Method Room Air BMI result Body Mass Index 36.0 Course Course Course Narrative: Given patient's symptoms, patient was treated for symptomatic with p.o. dexamethasone and viscous lidocaine Medical Decision Making Medical Decision Making [facility] Narrative: my interpretation of labs: Patient's has positive for COVID Lab Data Labs: Lab Results 12/23/24 12/23/24 Range/Units 22:16 22:17 COVID-19 (JENELLE) Positive A (Negative) COVID-19 Clin Com See Note Influenza Type A (JREMAINE) Negative (Negative) Influenza Type B (JERMAINE) Negative (Negative) Influenza A & B Note See Note S. pyogenes GrpA JERMAINE Negative (Negative) Discharge Plan Discharge Clinical Impression: COVID Patient Disposition: Home, Self-Care Instructions: COVID-19 (Coronavirus Disease 2019) (ED) Additional Instructions: Please follow-up with your primary care physician tomorrow. If you have any worsening or new symptoms, please return to the emergency room or call 911 Prescriptions: No Action ibuprofen [Advil] 200 mg Tablet 400 mg PO Q8H PRN (Reason: Pain) sennosides 25 mg Tablet 25 mg PO DAILY PRN (Reason: Constipation) Proair Digihaler 90 mcg/actuation aero powdr breath act w/sensor 1 inh inhalation Q4-6H PRN (Reason: shortness of breath) Qty: 1 0RF albuterol sulfate 90 mcg/actuation HFA aerosol inhaler 2 puff inhalation Q6H PRN (Reason: shortness of breath or wheezing) Qty: 6.7 0RF pantoprazole [Protonix] 40 mg tablet,delayed release (DR/EC) 40 mg PO DAILY Qty: 20 0RF Print Language: French
[2024-12-24] MEDS: Lidocaine HCl Viscous 2 % 15 ML SOLUTION MUCOUS MEM (00:54)
[2024-12-24 01:08] VITALS: BP 136/77; PULSE 92; RESP 20; TEMP 36.8; O2SAT 94
== END 2024-12-24 01:09 | disposition home or self-care (01) ==
PROVIDERS: Emergency Provider Emergency Medicine
DX: U07.1 COVID-19 (principal); R05.9 Cough, unspecified; J02.9 Acute pharyngitis, unspecified
CPT/HCPCS: 71045; 87502; 87635; 87651; 99282; 99283; J8540

== ENCOUNTER → 2024-12-23 22:12 | Outpatient (BNV) | payer OTHER, SELFPAY | PROVIDERS: Visit Provider Radiology Diagnostic Radiology | DX: R05.9 Cough, unspecified (principal) | CPT/HCPCS: 71045 ==